=== PATIENT | female | born 1965 | race American Indian/Alaskan Native ===

== ENCOUNTER 2017-10-12 19:50 | Inpatient (IN) | payer OTHER ==
--- NOTE | 2017-10-12 20:23 | Cat Scan Report ---
FINAL REPORT PROCEDURE: CT HEAD/BRAIN WO CON TECHNIQUE: Computerized tomography of the head was performed without contrast material. HISTORY: Stroke symptoms COMPARISON: No prior studies are available for comparison. FINDINGS: Skull and scalp: Normal. Paranasal sinuses: Mucosal thickening is noted involving left ethmoid sinuses. Ventricles and subarachnoid spaces: Normal. Cerebrum: No evidence of hemorrhage, acute infarction or mass . Cerebellum and brainstem: No evidence of hemorrhage, acute infarction or mass. Vasculature: Normal. Comments: None. IMPRESSION: No acute intracranial abnormality Left ethmoid chronic sinusitis
[2017-10-12 20:26] LABS: INR 0.8 (0.87-1.13)
[2017-10-12 20:27] LABS: Alanine Aminotransferase 19 units/L (7-56); Albumin 4.1 g/dL (3.9-5); BUN/Creatinine Ratio 20; Blood Urea Nitrogen 16 mg/dL (7-17); Calcium 8.5 mg/dL (8.4-10.2); Partial Thromboplastin Time 27.1 Sec. (24.2-36.6); Thrombin Time 14.8 Sec. (15.1-19.6)
[2017-10-12 20:30] LABS: Basophils # (Auto) 0.1 K/mm3 (0.0-0.1); Eosinophils # (Auto) 0.3 K/mm3 (0.0-0.4); Eosinophils % (Auto) 2.2 % (0.0-4.3); Hematocrit 37.3 % (30.3-42.9); Hemoglobin 12.5 gm/dl (10.1-14.3); Lymphocytes % (Auto) 34.7 % (13.4-35.0); Mean Corpuscular HGB Conc 34 % (30-34); Mean Corpuscular Hemoglobin 32 pg (28-32); Mean Corpuscular Volume 94 fl (79-97); Monocytes # (Auto) 0.9 K/mm3 (0.0-0.8); Monocytes % (Auto) 7.4 % (0.0-7.3); Platelet Count 265 K/mm3 (140-440); Red Blood Count 3.96 M/mm3 (3.65-5.03); Red Cell Distribution Width 13.8 % (13.2-15.2)
--- NOTE | 2017-10-12 20:34 | XRay Report ---
FINAL REPORT PROCEDURE: XR CHEST 1V AP TECHNIQUE: Chest radiograph anteroposterior view. CPT 57821 HISTORY: cva COMPARISON: No prior studies are available for comparison. FINDINGS: Heart: Normal. Mediastinum/Vessels: Normal. Lungs/Pleural space: Normal. Bony thorax: No acute osseous abnormality. Life support devices: None. IMPRESSION: No acute cardiopulmonary abnormality.
[2017-10-12 20:47] LABS: Creatine Kinase MB 1.5 ng/mL (0.0-4.0)
[2017-10-12] MEDS ORDERED: NORMODYNE IV ONE ×3 (20:51→21:07)
[2017-10-12] MEDS ORDERED: NACL 0.9% IV ONE ×3 (20:57→21:02)
[2017-10-12] MEDS ORDERED: ACTIVASE IV ONE ×2 (21:02)
--- NOTE | 2017-10-12 22:31 | Emergency Department Report ---
ED Neuro Deficit HPI - General Chief Complaint: Neuro Symptoms/Deficit Stated Complaint: POSSIBLE STROKE Time Seen by Provider: 10/12/17 19:59 Source: family, EMS Mode of arrival: Ambulatory Limitations: Language Barrier, Altered Mental Status, Physical Limitation - History of Present Illness Initial Comments: Ms. Sanches is a 62-year-old female with history of TIA, hypertension and peripheral vascular disease. She is taking clopidogrel. She fell suddenly at work approximately 1910 according to daughter. Her coworkers immediately called the daughter. Patient is currently nonverbal. Patient was nonverbal. She was not moving her right side. No witnessed seizure activity. Patient is unable to give history due to aphasia. Daughter was able to give history. EMS gave history. -: Sudden Last Observed Normal: 19:10 Location: speech, right arm, right leg Presenting Symptoms: Present: Weak/Paralyzed One Side, Unable to Speak Clearly, Altered Mental Status History of same: No (history of TIA) Place: work Severity: severe Quality: weak Improves With: none Worsens With: none On Anticoagulants: No (clopidogrel ) Context: sudden onset Associated Symptoms: confusion Treatments Prior to Arrival: none - Related Data Home Medications: Home Medications Medication Instructions Recorded Confirmed Last Taken Atenolol [Tenormin] 25 mg PO DAILY 05/09/13 03/16/14 05/09/13 03:30 Lisinopril/Hydrochlorothiazide 1 tab PO DAILY 03/16/14 03/16/14 Unknown [Zestoretic 20-25 mg] tiZANidine [Zanaflex] 4 mg PO BID PRN 03/16/14 03/16/14 Unknown Previous Rx's Medication Instructions Recorded Last Taken Type Acetaminophen/Codeine [Tylenol 1 tab PO Q8HR PRN #12 tablet 12/10/15 Unknown Rx /Codeine # 3 tab] Allergies/Adverse Reactions: Allergies Allergy/AdvReac Type Severity Reaction Status Date / Time clarithromycin [From Biaxin] Allergy Swelling Verified 05/14/13 10:06 prochlorperazine edisylate Allergy Itching Verified 05/14/13 10:06 [From Compazine] prochlorperazine maleate Allergy Itching Verified 05/14/13 10:06 [From Compazine] ED Review of Systems ROS: Stated complaint: POSSIBLE STROKE Other details as noted in HPI Comment: Unobtainable due to pts medical conditions ED Past Medical Hx - Past Medical History Previous Medical History?: Yes Hx Hypertension: Yes Hx of Cancer: No Hx Arthritis: No Hx Headaches / Migraines: Yes Hx Asthma: No - Surgical History Hx Appendectomy: Yes Additional Surgical History: tubligation - Social History Smoking Status: Current Every Day Smoker Substance Use Type: Alcohol - Medications Home Medications: Home Medications Medication Instructions Recorded Confirmed Last Taken Type Atenolol [Tenormin] 25 mg PO DAILY 05/09/13 03/16/14 05/09/13 03:30 History Lisinopril/Hydrochlorothiazide 1 tab PO DAILY 03/16/14 03/16/14 Unknown History [Zestoretic 20-25 mg] tiZANidine [Zanaflex] 4 mg PO BID PRN 03/16/14 03/16/14 Unknown History Acetaminophen/Codeine [Tylenol 1 tab PO Q8HR PRN #12 tablet 12/10/15 Unknown Rx /Codeine # 3 tab] ED Neuro Physical Exam - General Limitations: Altered Mental Status, Physical Limitation General appearance: alert, other (nonverbal will track with eyes moves her mouth as if she is attempting to speak head deviated to the left) Suspected Stroke: Yes - Head Head exam: Present: atraumatic, normocephalic - Eye Eye exam: Present: normal appearance, PERRL, EOMI Pupils: Present: normal accommodation - ENT ENT exam: Present: normal orophraynx, mucous membranes moist - Neck Neck exam: Present: normal inspection, full ROM. Absent: tenderness, meningismus - Respiratory Respiratory exam: Present: normal lung sounds bilaterally. Absent: respiratory distress, wheezes, rales, rhonchi - Cardiovascular Cardiovascular Exam: Present: regular rate, normal rhythm, normal heart sounds. Absent: irregular rhythm, systolic murmur, diastolic murmur - GI/Abdominal GI/Abdominal exam: Present: soft. Absent: distended, tenderness, guarding, rebound - Extremities Exam Extremities exam: Present: normal inspection - Neurological Exam Neurological exam: Present: alert, other (nonverbal will move her mouth complete right-sided neglect dense paralysis 0 out of 10 in strength right upper extremity right lower extremity intact strength on the left side is 5 out of 5 left upper arm 4/ 5 left leg) - NIHSS Assessment Interval: Baseline 1a. Level of Consciousness: alert 1b. LOC Questions: answers no questions correctly 1c. LOC Commands: performs no tasks correctly 2. Best Gaze: normal 3. Visual: no visual loss 4. Facial Palsy: minor paralysis 5b. Motor Arm Right: no movement 5a. Motor Arm Left: no drift 6a. Motor Leg Left: drift 6b. Motor Leg Right: no movement 7. Limb Ataxia: present 2 limbs 8. Sensory: severe/total sensory loss 9. Best Language: mute/global aphasia 10. Dysarthria: severe dysarthria 11. Extinction/Inattention: profound inattention ED Course Vital Signs 10/12/17 10/12/17 10/12/17 20:00 20:05 20:10 Temperature 98.4 F Pulse Rate 76 Respiratory 16 Rate Blood Pressure 196/99 Blood Pressure 196/99 189/96 [Right] O2 Sat by Pulse 100 Oximetry 10/12/17 10/12/17 10/12/17 20:15 20:25 20:40 Temperature Pulse Rate Respiratory Rate Blood Pressure Blood Pressure 175/103 188/98 205/112 [Right] O2 Sat by Pulse Oximetry 10/12/17 10/12/17 10/12/17 20:50 21:00 21:10 Temperature Pulse Rate Respiratory Rate Blood Pressure Blood Pressure 198/110 207/109 200/102 [Right] O2 Sat by Pulse Oximetry 10/12/17 10/12/17 10/12/17 21:20 21:48 21:51 Temperature Pulse Rate 75 Respiratory Rate Blood Pressure 184/101 178/96 Blood Pressure 184/105 [Right] O2 Sat by Pulse Oximetry - Reevaluation(s) Reevaluation #1: 10/12/17 22:33 After TPA infusion, patient is able to move right hand and right foot. Attempts to communicate more - Lab Data Result diagrams: 10/12/17 20:26 10/12/17 20:13 Lab Results 10/12/17 10/12/17 10/12/17 Range/Units 20:03 20:13 20:13 WBC (4.5-11.0) K/mm3 RBC (3.65-5.03) M/mm3 Hgb (10.1-14.3) gm/dl Hct (30.3-42.9) % MCV (79-97) fl MCH (28-32) pg MCHC (30-34) % RDW (13.2-15.2) % Plt Count (140-440) K/mm3 Lymph % (Auto) (13.4-35.0) % [place] % (Auto) (0.0-7.3) % Eos % (Auto) (0.0-4.3) % Baso % (Auto) (0.0-1.8) % Lymph # (1.2-5.4) K/mm3 [place] # (0.0-0.8) K/mm3 Eos # (0.0-0.4) K/mm3 Baso # (0.0-0.1) K/mm3 Seg Neutrophils % (40.0-70.0) % Seg Neutrophils # (1.8-7.7) K/mm3 PT 11.4 L (12.2-14.9) Sec. INR 0.80 L (0.87-1.13) APTT 27.1 (24.2-36.6) Sec. Thrombin Time 14.8 L (15.1-19.6) Sec. Sodium 135 L (137-145) mmol/L Potassium 5.6 H (3.6-5.0) mmol/L Chloride 95.1 L (98-107) mmol/L Carbon Dioxide 20 L (22-30) mmol/L Anion Gap 26 mmol/L BUN 16 (7-17) mg/dL Creatinine 0.8 (0.7-1.2) mg/dL Estimated GFR > 60 ml/min BUN/Creatinine Ratio 20 % Glucose 104 H (65-100) mg/dL POC Glucose 102 (70-105) Calcium 8.5 (8.4-10.2) mg/dL Total Bilirubin 0.40 (0.1-1.2) mg/dL AST 42 H (5-40) units/L ALT 19 (7-56) units/L Alkaline Phosphatase 133 H (35-129) units/L Total Creatine Kinase (30-135) units/L CK-MB (CK-2) (0.0-4.0) ng/mL CK-MB (CK-2) Rel Index (0-4) Troponin T (0.00-0.029) ng/mL Total Protein 7.1 (6.3-8.2) g/dL Albumin 4.1 (3.9-5) g/dL Albumin/Globulin Ratio 1.4 % Plasma/Serum Alcohol (0-0.07) % Blood Type Antibody Screen 10/12/17 10/12/17 10/12/17 Range/Units 20:26 20:26 20:26 WBC 11.5 H (4.5-11.0) K/mm3 RBC 3.96 (3.65-5.03) M/mm3 Hgb 12.5 (10.1-14.3) gm/dl Hct 37.3 (30.3-42.9) % MCV 94 (79-97) fl MCH 32 (28-32) pg MCHC 34 (30-34) % RDW 13.8 (13.2-15.2) % Plt Count 265 (140-440) K/mm3 Lymph % (Auto) 34.7 (13.4-35.0) % [place] % (Auto) 7.4 H (0.0-7.3) % Eos % (Auto) 2.2 (0.0-4.3) % Baso % (Auto) 1.0 (0.0-1.8) % Lymph # 4.0 (1.2-5.4) K/mm3 [place] # 0.9 H (0.0-0.8) K/mm3 Eos # 0.3 (0.0-0.4) K/mm3 Baso # 0.1 (0.0-0.1) K/mm3 Seg Neutrophils % 54.7 (40.0-70.0) % Seg Neutrophils # 6.3 (1.8-7.7) K/mm3 PT (12.2-14.9) Sec. INR (0.87-1.13) APTT (24.2-36.6) Sec. Thrombin Time (15.1-19.6) Sec. Sodium (137-145) mmol/L Potassium (3.6-5.0) mmol/L Chloride (98-107) mmol/L Carbon Dioxide (22-30) mmol/L Anion Gap mmol/L BUN (7-17) mg/dL Creatinine (0.7-1.2) mg/dL Estimated GFR ml/min BUN/Creatinine Ratio % Glucose (65-100) mg/dL POC Glucose (70-105) Calcium (8.4-10.2) mg/dL Total Bilirubin (0.1-1.2) mg/dL AST (5-40) units/L ALT (7-56) units/L Alkaline Phosphatase (35-129) units/L Total Creatine Kinase 140 H (30-135) units/L CK-MB (CK-2) 1.5 (0.0-4.0) ng/mL CK-MB (CK-2) Rel Index 1.0 (0-4) Troponin T < 0.010 (0.00-0.029) ng/mL Total Protein (6.3-8.2) g/dL Albumin (3.9-5) g/dL Albumin/Globulin Ratio % Plasma/Serum Alcohol < 0.01 (0-0.07) % Blood Type Antibody Screen 10/12/17 Range/Units 20:26 WBC (4.5-11.0) K/mm3 RBC (3.65-5.03) M/mm3 Hgb (10.1-14.3) gm/dl Hct (30.3-42.9) % MCV (79-97) fl MCH (28-32) pg MCHC (30-34) % RDW (13.2-15.2) % Plt Count (140-440) K/mm3 Lymph % (Auto) (13.4-35.0) % [place] % (Auto) (0.0-7.3) % Eos % (Auto) (0.0-4.3) % Baso % (Auto) (0.0-1.8) % Lymph # (1.2-5.4) K/mm3 [place] # (0.0-0.8) K/mm3 Eos # (0.0-0.4) K/mm3 Baso # (0.0-0.1) K/mm3 Seg Neutrophils % (40.0-70.0) % Seg Neutrophils # (1.8-7.7) K/mm3 PT (12.2-14.9) Sec. INR (0.87-1.13) APTT (24.2-36.6) Sec. Thrombin Time (15.1-19.6) Sec. Sodium (137-145) mmol/L Potassium (3.6-5.0) mmol/L Chloride (98-107) mmol/L Carbon Dioxide (22-30) mmol/L Anion Gap mmol/L BUN (7-17) mg/dL Creatinine (0.7-1.2) mg/dL Estimated GFR ml/min BUN/Creatinine Ratio % Glucose (65-100) mg/dL POC Glucose (70-105) Calcium (8.4-10.2) mg/dL Total Bilirubin (0.1-1.2) mg/dL AST (5-40) units/L ALT (7-56) units/L Alkaline Phosphatase (35-129) units/L Total Creatine Kinase (30-135) units/L CK-MB (CK-2) (0.0-4.0) ng/mL CK-MB (CK-2) Rel Index (0-4) Troponin T (0.00-0.029) ng/mL Total Protein (6.3-8.2) g/dL Albumin (3.9-5) g/dL Albumin/Globulin Ratio % Plasma/Serum Alcohol (0-0.07) % Blood Type O POSITIVE Antibody Screen Negative 10/12/17 22:33 EKG obtained 1955 Rate 95 beats a minute normal sinus rhythm normal axis normal intervals no ST-T signs of ischemia or infarct - Medical Decision Making Medications at the bedside immediately. Concern for severe CVA. Patient had dense right-sided hemiparesis, neglect, aphasia. I consulted neurologist Dr. Treviño who evaluated patient. She recommended TPA. I consulted pharmacy to expedite TPA infusion. Patient required several doses of Labetalol prior to infusion. After tpa infusion, she is able to move right hand and right foot. NIHSS [address] Barron Cifuentes physician approved admission to our hospital. Our hospitalist Dr. Stern will admit patient. Critical Care Time: Yes Critical care time in (mins) excluding proc time.: 45 Critical care attestation.: If time is entered above; I have spent that time in minutes in the direct care of this critically ill patient, excluding procedure time. ED Disposition Clinical Impression: Acute CVA (cerebrovascular accident) Disposition: OP ADMIT IP TO THIS HOSP Is pt being admited?: Yes Does the pt Need Aspirin: No Condition: Stable Time of Disposition: 23:24
[2017-10-12 23:29] LABS: Amphetamine Screen,Urine PRESUMPTIVE NEGATIVE; Benzodiazepines Screen,Urine PRESUMPTIVE NEGATIVE; Cannabinoid Screen,Urine PRESUMPTIVE NEGATIVE; Cocaine Screen,Urine PRESUMPTIVE NEGATIVE; Methadone Screen,Urine PRESUMPTIVE NEGATIVE; Opiate Screen,Urine PRESUMPTIVE NEGATIVE
[2017-10-12 23:30] LABS: Bilirubin,Urine NEG (Negative); Blood,Urine SM (Negative); Color,Urine Yellow (Yellow); Protein,Urine <15 mg/dL mg/dL (Negative); Urobilinogen,Urine < 2.0 mg/dL (<2.0); WBC,Urine < 1.0 /HPF (0.0-6.0)
[2017-10-12] MEDS ORDERED: REGLAN PO PRN (23:56)
[2017-10-12] MEDS ORDERED: APRESOLINE IV PRN (23:56)
[2017-10-12] MEDS ORDERED: MILK OF MAGNESIA PO PRN (23:56)
[2017-10-12] MEDS ORDERED: TYLENOL PO PRN (23:56)
[2017-10-12] MEDS ORDERED: NORCO 5/325 PO PRN (23:56)
[2017-10-12] MEDS ORDERED: DULCOLAX PR PRN (23:56)
[2017-10-12] MEDS ORDERED: SODIUM CHLORIDE FLUSH SYRINGE 10 ML IV PRN (23:56)
[2017-10-13] MEDS ORDERED: HumuLIN R IV ONE (00:07)
[2017-10-13] MEDS ORDERED: D50W (25GM) Syringe IV ONE ×2 (00:08→00:37)
--- NOTE | 2017-10-13 00:22 | History and Physical Report ---
History of Present Illness Date of examination: 10/12/17 Date of admission: 10/12/17 23:56 Chief complaint: Syncope with right-sided weakness History of present illness: Patient is a 52-year-old -Serbian female with medical history significant for poorly controlled hypertension, TIA and peripheral vascular disease on Plavix, who was brought to the ED via EMS on account of syncope with right-sided weakness. Of note, history was obtained from both the patient and her daughter who was at the bedside. It was reported that the patient passed out while at work and was subsequently noted to have right-sided weakness with inability to verbalize. She was brought to the ED about 45 minutes after the incident and he received TPA in the ED. On further questioning the patient, she admitted to headaches, dizziness, chest pain, and sore throat. She denies nausea, vomiting, shortness of breath, diaphoresis, palpitation, fever or chills , cough, leg swelling, orthopnea or PND. No reported history of seizure activity. Past History Past Medical History: hypertension, hyperlipidemia, PVD, other (TIA, chronic back pain, atypical migraine) Past Surgical History: appendectomy, Other (arterial stent placement, tubal ligation) Social history: smoking (tobacco abuse of more than 20 years. Admits to occasional alcohol use but denies illicit drug use) Family history: other (reviewed and noncontributory) Medications and Allergies Allergies Allergy/AdvReac Type Severity Reaction Status Date / Time clarithromycin [From Biaxin] Allergy Swelling Verified 05/14/13 10:06 prochlorperazine edisylate Allergy Itching Verified 05/14/13 10:06 [From Compazine] prochlorperazine maleate Allergy Itching Verified 05/14/13 10:06 [From Compazine] Home Medications Medication Instructions Recorded Confirmed Last Taken Type Atenolol [Tenormin] 25 mg PO DAILY 05/09/13 03/16/14 05/09/13 03:30 History Lisinopril/Hydrochlorothiazide 1 tab PO DAILY 03/16/14 03/16/14 Unknown History [Zestoretic 20-25 mg] tiZANidine [Zanaflex] 4 mg PO BID PRN 03/16/14 03/16/14 Unknown History Acetaminophen/Codeine [Tylenol 1 tab PO Q8HR PRN #12 tablet 12/10/15 Unknown Rx /Codeine # 3 tab] Active Meds: Active Medications Acetaminophen (Tylenol) 650 mg PO Q4H PRN PRN Reason: Pain, Mild (1-3) Acetaminophen/Hydrocodone Bitart ([place] 5/325) 2 each PO Q6H PRN PRN Reason: Pain, Moderate (4-6) Bisacodyl (Dulcolax) 10 mg NM QDAY PRN PRN Reason: Constipation Dextrose (D50w (25gm) Syringe) 50 ml IV ONCE ONE Stop: 10/13/17 00:09 Docusate Sodium (Colace) 100 mg PO BID SANTOS Hydralazine HCl (Apresoline) 10 mg IV Q6H PRN PRN Reason: Keep SBP between 160-185 mm Hg Sodium Chloride (Nacl 0.9% 1000 Ml) 1,000 mls @ 100 mls/hr IV DIRECT SANTOS Insulin Human Regular (Humulin R) 10 units IV ONCE ONE Stop: 10/13/17 00:08 Magnesium Hydroxide (Milk Of Magnesia) 30 ml PO Q4H PRN PRN Reason: Constipation Metoclopramide HCl (Reglan) 10 mg PO Q6H PRN PRN Reason: Nausea And Vomiting Ondansetron HCl (Zofran) 4 mg IV Q8H PRN PRN Reason: N/V unrelieved by Reglan Sodium Chloride (Sodium Chloride Flush Syringe 10 Ml) 10 ml INJ PRN PRN PRN Reason: LINE FLUSH Review of Systems All systems: negative (except as documented in the HPI, all other systems were reviewed and negative) Exam - Constitutional Vitals: Temp Pulse Resp BP Pulse Ox 98.4 F 75 16 178/96 100 10/12/17 20:05 10/12/17 21:51 10/12/17 20:05 10/12/17 21:51 10/12/17 20:05 General appearance: Present: no acute distress, well-nourished - EENT Eyes: Present: PERRL, EOM intact ENT: hearing intact, clear oral mucosa - Neck Neck: Present: supple, normal ROM - Respiratory Respiratory effort: normal Respiratory: bilateral: CTA - Cardiovascular Rhythm: regular Heart Sounds: Present: S1 & S2. Absent: rub, click - Extremities Extremities: No edema - Abdominal General gastrointestinal: Present: soft, non-tender, non-distended, normal bowel sounds - Integumentary Integumentary: Present: clear, warm, dry - Musculoskeletal Musculoskeletal: right sided weakness - Psychiatric Psychiatric: appropriate mood/affect, intact judgment & insight - Neurologic Neurologic: focal deficits (RT sided weakness) Results - Labs CBC & Chem 7: 10/12/17 20:26 10/12/17 20:13 Labs: Laboratory Last Values WBC 11.5 K/mm3 (4.5-11.0) H 10/12/17 20: RBC 3.96 M/mm3 (3.65-5.03) 10/12/17 20: Hgb 12.5 gm/dl (10.1-14.3) 10/12/17 20: Hct 37.3 % (30.3-42.9) 10/12/17 20: MCV 94 fl (79-97) 10/12/17 20: MCH 32 pg (28-32) 10/12/17 20: MCHC 34 % (30-34) 10/12/17 20: RDW 13.8 % (13.2-15.2) 10/12/17 20: Plt Count 265 K/mm3 (140-440) 10/12/17 20: Lymph % (Auto) 34.7 % (13.4-35.0) 10/12/17 20: [place] % (Auto) 7.4 % (0.0-7.3) H 10/12/17 20: Eos % (Auto) 2.2 % (0.0-4.3) 10/12/17 20: Baso % (Auto) 1.0 % (0.0-1.8) 10/12/17 20: Lymph # 4.0 K/mm3 (1.2-5.4) 10/12/17 20: [place] # 0.9 K/mm3 (0.0-0.8) H 10/12/17 20: Eos # 0.3 K/mm3 (0.0-0.4) 10/12/17 20: Baso # 0.1 K/mm3 (0.0-0.1) 10/12/17 20: Seg Neutrophils % 54.7 % (40.0-70.0) 10/12/17 20:26 Seg Neutrophils # 6.3 K/mm3 (1.8-7.7) 10/12/17 20:26 PT 11.4 Sec. (12.2-14.9) L 10/12/17 20:13 INR 0.80 (0.87-1.13) L 10/12/17 20:13 APTT 27.1 Sec. (24.2-36.6) 10/12/17 20:13 Thrombin Time 14.8 Sec. (15.1-19.6) L 10/12/17 20:13 Sodium 135 mmol/L (137-145) L 10/12/17 20:13 Potassium 5.6 mmol/L (3.6-5.0) H 10/12/17 20:13 Chloride 95.1 mmol/L (98-107) L 10/12/17 20:13 Carbon Dioxide 20 mmol/L (22-30) L 10/12/17 20:13 Anion Gap 26 mmol/L 10/12/17 20:13 BUN 16 mg/dL (7-17) 10/12/17 20:13 Creatinine 0.8 mg/dL (0.7-1.2) 10/12/17 20:13 Estimated GFR > 60 ml/min 10/12/17 20:13 BUN/Creatinine Ratio 20 % 10/12/17 20:13 Glucose 104 mg/dL (65-100) H 10/12/17 20:13 POC Glucose 102 (70-105) 10/12/17 20:03 Calcium 8.5 mg/dL (8.4-10.2) 10/12/17 20:13 Total Bilirubin 0.40 mg/dL (0.1-1.2) 10/12/17 20:13 AST 42 units/L (5-40) H 10/12/17 20:13 ALT 19 units/L (7-56) 10/12/17 20:13 Alkaline Phosphatase 133 units/L (35-129) H 10/12/17 20:13 Total Creatine Kinase 140 units/L (30-135) H 10/12/17 20:26 CK-MB (CK-2) 1.5 ng/mL (0.0-4.0) 10/12/17 20:26 CK-MB (CK-2) Rel Index 1.0 (0-4) 10/12/17 20: Troponin T < 0.010 ng/mL (0.00-0.029) 10/12/17 20: Total Protein 7.1 g/dL (6.3-8.2) 10/12/17 20: Albumin 4.1 g/dL (3.9-5) 10/12/17 20: Albumin/Globulin Ratio 1.4 % 10/12/17 20: Urine Color Yellow (Yellow) 10/12/17 20: Urine Turbidity Clear (Clear) 10/12/17 20: Urine pH 7.0 (5.0-7.0) 10/12/17 20: Ur Specific [place] 1.014 (1.003-1.030) 10/12/17 20: Urine Protein <15 mg/dl mg/dL (Negative) 10/12/17 20:06 Urine Glucose (UA) Neg mg/dL (Negative) 10/12/17 20: Urine Ketones Neg mg/dL (Negative) 10/12/17 20: Urine Blood Sm (Negative) 10/12/17 20: Urine Nitrite Neg (Negative) 10/12/17 20:06 Urine Bilirubin Neg (Negative) 10/12/17 20: Urine Urobilinogen < 2.0 mg/dL (<2.0) 10/12/17 20:06 Ur Leukocyte Esterase Neg (Negative) 10/12/17 20:06 Urine WBC (Auto) < 1.0 /HPF (0.0-6.0) 10/12/17 20:06 Urine RBC (Auto) 5.0 /HPF (0.0-6.0) 10/12/17 20:06 U Epithel Cells (Auto) < 1.0 /HPF (0-13.0) 10/12/17 20:06 Urine Opiates Screen Presumptive negative 10/12/17 20:06 Urine Methadone Screen Presumptive negative 10/12/17 20:06 Ur Barbiturates Screen Presumptive negative 10/12/17 20:06 Ur Phencyclidine Scrn Presumptive negative 10/12/17 20:06 Ur Amphetamines Screen Presumptive negative 10/12/17 20:06 U Benzodiazepines Scrn Presumptive negative 10/12/17 20:06 Urine Cocaine Screen Presumptive negative 10/12/17 20:06 U Marijuana (THC) Screen Presumptive negative 10/12/17 20:06 Drugs of Abuse Note Disclamer 10/12/17 20:06 Plasma/Serum Alcohol < 0.01 % (0-0.07) 10/12/17 20:26 Blood Type O POSITIVE 10/12/17 20:26 Antibody Screen Negative 10/12/17 20:26 - Imaging and Cardiology Chest x-ray: report reviewed CT Scan - head: report reviewed Assessment and Plan Assessment and plan: Acute stroke with right hemiparesis -status post TPA -Will admit patient to the ICU and place her on a stroke protocol -CT head is neg -We will do further investigative testing with MRI brain, MRA head and neck, echocardiogram and carotid Doppler -Neurology consulted Hypertensive emergency -We will place patient on when necessary antihypertensive per the stroke protocol Hyperkalemia -Will treat with insulin and dextrose. -Will monitor potassium level Transaminitis -We will continue to monitor levels Leukocytosis, probably reactive -Ua is neg -Will monitor WBC level Hyperlipidemia -She will be placed on a statin History of PVD on Plavix -All antiplatelets will be held for 24 hours due to the TPA patient received Tobacco abuse -Patient was counseled on cessation History of migraines -Will be placed on when necessary analgesics. Disposition: Patient is likely to need inpatient rehabilitation facility placement. I spent 45 minutes providing critical care to this seriously ill patient, who requires frequent reassessment of her neurological status.
[2017-10-13] MEDS ORDERED: HumuLIN R ONE (00:39)
[2017-10-13] MEDS: MORPHINE IV PRN ×2 (02:33→06:53)
[2017-10-13] MEDS: NACL 0.9% 1000 ML 1,000 ML IV SCH ×2 (02:35→18:43)
[2017-10-13 05:13] LABS: Chol/HDL Ratio 2.9 %
--- NOTE | 2017-10-13 06:31 | Cat Scan Report ---
FINAL REPORT PROCEDURE: CT HEAD/BRAIN WO CON TECHNIQUE: Computerized tomography of the head was performed without contrast material. HISTORY: S/P TPA severe headache COMPARISON: No prior studies are available for comparison. FINDINGS: Skull and scalp: Normal. Paranasal sinuses: Normal. Ventricles and subarachnoid spaces: Normal. Cerebrum: No evidence of hemorrhage, acute infarction or mass . Cerebellum and brainstem: No evidence of hemorrhage, acute infarction or mass. Vasculature: Normal. Comments: None. IMPRESSION: Normal Examination
[2017-10-13] MEDS: COLACE PO SCH ×2 (09:01→21:05)
--- NOTE | 2017-10-13 10:23 | Consultation ---
History of Present Illness Consult date: 10/13/17 Requesting physician: CARMEN VACA Reason for Consult: Acute CVA. Chief complaint: Right side weakness and slurry speech. History of present illness: 52-year-old right handed -Northern [place] female with a medical history of significant for poorly controlled hypertension, TIA and peripheral vascular disease on Plavix, who was brought to the ED via EMS on account of syncope with right-sided weakness. She was at work, then suddenly passed out and was subsequently noted to have right-sided weakness with inability to verbalize. She was brought to the ED about 45 minutes after the incident and he received TPA in the ED. On further questioning the patient, she admitted to headaches, dizziness, chest pain, and sore throat. She denied history of seizure activity. Right now her right side weakness improved, but felt throat sore and hoarse speech. Past History Past Medical History: hypertension, hyperlipidemia, PVD, other (TIA, chronic back pain, atypical migraine) Past Surgical History: appendectomy, Other (arterial stent placement, tubal ligation) Social history: smoking (tobacco abuse of more than 20 years. Admits to occasional alcohol use but denies illicit drug use) Family history: other (CVA, heart disease, DM and HTN.) Medications and Allergies Allergies Allergy/AdvReac Type Severity Reaction Status Date / Time clarithromycin [From Biaxin] Allergy Swelling Verified 05/14/13 10:06 prochlorperazine edisylate Allergy Itching Verified 05/14/13 10:06 [From Compazine] prochlorperazine maleate Allergy Itching Verified 05/14/13 10:06 [From Compazine] Home Medications Medication Instructions Recorded Confirmed Last Taken Type Atenolol [Tenormin] 25 mg PO DAILY 05/09/13 03/16/14 05/09/13 03:30 History Lisinopril/Hydrochlorothiazide 1 tab PO DAILY 03/16/14 03/16/14 Unknown History [Zestoretic 20-25 mg] tiZANidine [Zanaflex] 4 mg PO BID PRN 03/16/14 03/16/14 Unknown History Acetaminophen/Codeine [Tylenol 1 tab PO Q8HR PRN #12 tablet 12/10/15 Unknown Rx /Codeine # 3 tab] Active Meds: Active Medications Acetaminophen (Tylenol) 650 mg PO Q4H PRN PRN Reason: Pain, Mild (1-3) Acetaminophen/Hydrocodone Bitart ([place] 5/325) 2 each PO Q6H PRN PRN Reason: Pain, Moderate (4-6) Atorvastatin Calcium (Lipitor) 40 mg PO QHS SANTOS Bisacodyl (Dulcolax) 10 mg [place] QDAY PRN PRN Reason: Constipation Docusate Sodium (Colace) 100 mg PO BID [facility] Last Admin: 10/13/17 09:01 Dose: Not Given Hydralazine HCl (Apresoline) 10 mg IV Q6H PRN PRN Reason: Keep SBP between 160-185 mm Hg Sodium Chloride (Nacl 0.9% 1000 Ml) 1,000 mls @ 100 mls/hr IV DIRECT [facility] Last Admin: 10/13/17 02:35 Dose: 100 mls/hr Magnesium Hydroxide (Milk Of Magnesia) 30 ml PO Q4H PRN PRN Reason: Constipation Metoclopramide HCl (Reglan) 10 mg PO Q6H PRN PRN Reason: Nausea And Vomiting Morphine Sulfate (Morphine) 2 mg IV Q4H PRN PRN Reason: Pain, Moderate (4-6) Last Admin: 10/13/17 06:53 Dose: 2 mg Ondansetron HCl (Zofran) 4 mg IV Q8H PRN PRN Reason: N/V unrelieved by Reglan Sodium Chloride (Sodium Chloride Flush Syringe 10 Ml) 10 ml IV PRN PRN PRN Reason: LINE FLUSH Review of Systems Constitutional: fever, chills Neurological: weakness, change in speech (She has throat sore. All other 10 points of systems are reviewed and negative.) Physical Examination - Vital Signs Vital Signs: Vital Signs BP 196/99 10/12/17 20:00 - Constitutional General appearance: comfortable - EENT EENT: Present: PERRL, hearing intact, vision intact - Respiratory Respiratory: Present: lungs clear, normal breath sounds - Cardiovascular Cardiovascular: Present: regular rate, no murmurs Extremities: Present: no peripheral edema bilatateraly, no clubbing, cyanosis - Gastrointestinal Gastrointestinal: Present: soft, non-tender - Integumentary Integumentary: Present: normal - Neurologic Detailed motor examination: other (Right upper 3/5, right lower 2/5, left upper 5/5, left lower 4/5.) Detailed sensory examination: intact Reflex and gait examination: other (Gait deferred.) Reflexes: 1+: ankle, bicep, knee, tricep - Psychiatric Psychiatric: Present: mood/affect appropriate - Assessment Assessment Interval: Baseline - Level of Consciousness 1a. Level of Consciousness: alert - LOC Questions 1b. LOC Questions: answers no questions correctly - LOC Command 1c. LOC Commands: performs no tasks correctly - Best Gaze 2. Best Gaze: normal - Visual 3. Visual: no visual loss - Facial Palsy 4. Facial Palsy: minor paralysis - Motor Arm 5b. Motor Arm Right: drift - Motor Leg 6a. Motor Leg Left: some gravity effort - Limb Ataxia 7. Limb Ataxia: present 2 limbs - Sensory 8. Sensory: severe/total sensory loss - Dysarthria 10. Dysarthria: mild/moderate dysarthria - Extinction and Inattention 11. Extinction/Inattention: profound inattention Results - Laboratory Findings CBC and BMP: 10/12/17 20:26 10/12/17 20:13 Abnormal Lab Findings: Abnormal Labs 10/12/17 10/12/17 10/12/17 20:13 20:13 20:26 WBC 11.5 H [place] % (Auto) 7.4 H [place] # 0.9 H PT 11.4 L INR 0.80 L Thrombin Time 14.8 L Sodium 135 L Potassium 5.6 H Chloride 95.1 L Carbon Dioxide 20 L Glucose 104 H AST 42 H Alkaline Phosphatase 133 H Total Creatine Kinase HDL Cholesterol 10/12/17 10/13/17 20:26 03:50 WBC [place] % (Auto) [place] # PT INR Thrombin Time Sodium Potassium Chloride Carbon Dioxide Glucose AST Alkaline Phosphatase Total Creatine Kinase 140 H HDL Cholesterol 33 L Assessment and Plan 1. Acute onset, dizziness, syncope, headache, right side weakness, slurry speech. Admitted for acute CVA, S/P IV TPA. NIHSS 4. Follow post TPA protocol. If repeat head CT no bleeding, no hemorrhage, resume her Plavix. 2. OT/PT, rehab and speech pathology. DVT prophylaxis. 3. Brain MRI without contrast. If acute CVA, head MRA. Carotid Doppler and echo. Lipid profile and A1c. 4. H/O atypical migraine headache. Complex migraine headache as differential. PRN headache medicine. 5. HTN. Permissive if less 180/105 until brain MRI clear. 6. Quit smoking. 7. Plan discussed with her. 8. If D/C, F/U with neurology in 4-6 weeks.
--- NOTE | 2017-10-13 11:59 | Consultation ---
History of Present Illness - Reason for Consult Consult date: 10/13/17 CVA post TPA Requesting physician: AMAURY WILSON - History of Present Illness 52 y/o female admitted to ICU post TPA for left sided CVA. Currently suffering from Migraine. Family at bedside. Still has residual right sided weakness but has improved from flaccid state of last night based on description in chart. Past History Past Medical History: hypertension, hyperlipidemia, PVD, other (TIA, chronic back pain, atypical migraine) Past Surgical History: appendectomy, Other (arterial stent placement, tubal ligation) Social history: smoking (tobacco abuse of more than 20 years. Admits to occasional alcohol use but denies illicit drug use) Family history: other (CVA, heart disease, DM and HTN.) Medications and Allergies Allergies Allergy/AdvReac Type Severity Reaction Status Date / Time clarithromycin [From Biaxin] Allergy Swelling Verified 05/14/13 10:06 prochlorperazine edisylate Allergy Itching Verified 05/14/13 10:06 [From Compazine] prochlorperazine maleate Allergy Itching Verified 05/14/13 10:06 [From Compazine] Home Medications Medication Instructions Recorded Confirmed Last Taken Type Atenolol [Tenormin] 25 mg PO DAILY 05/09/13 03/16/14 05/09/13 03:30 History Lisinopril/Hydrochlorothiazide 1 tab PO DAILY 03/16/14 03/16/14 Unknown History [Zestoretic 20-25 mg] tiZANidine [Zanaflex] 4 mg PO BID PRN 03/16/14 03/16/14 Unknown History Acetaminophen/Codeine [Tylenol 1 tab PO Q8HR PRN #12 tablet 12/10/15 Unknown Rx /Codeine # 3 tab] Active Meds: Active Medications Acetaminophen (Tylenol) 650 mg PO Q4H PRN PRN Reason: Pain, Mild (1-3) Acetaminophen/Hydrocodone Bitart ([place] 5/325) 2 each PO Q6H PRN PRN Reason: Pain, Moderate (4-6) Atorvastatin Calcium (Lipitor) 40 mg PO QHS [facility] Bisacodyl (Dulcolax) 10 mg [place] QDAY PRN PRN Reason: Constipation Docusate Sodium (Colace) 100 mg PO BID [facility] Last Admin: 10/13/17 09:01 Dose: Not Given Hydralazine HCl (Apresoline) 10 mg IV Q6H PRN PRN Reason: Keep SBP between 160-185 mm Hg Sodium Chloride (Nacl 0.9% 1000 Ml) 1,000 mls @ 100 mls/hr IV DIRECT [facility] Last Admin: 10/13/17 02:35 Dose: 100 mls/hr Magnesium Hydroxide (Milk Of Magnesia) 30 ml PO Q4H PRN PRN Reason: Constipation Metoclopramide HCl (Reglan) 10 mg PO Q6H PRN PRN Reason: Nausea And Vomiting Morphine Sulfate (Morphine) 2 mg IV Q4H PRN PRN Reason: Pain, Moderate (4-6) Last Admin: 10/13/17 06:53 Dose: 2 mg Ondansetron HCl (Zofran) 4 mg IV Q8H PRN PRN Reason: N/V unrelieved by Reglan Sodium Chloride (Sodium Chloride Flush Syringe 10 Ml) 10 ml IV PRN PRN PRN Reason: LINE FLUSH Review of Systems All systems: negative Exam - Constitutional Vitals: Temp Pulse Resp BP Pulse Ox 98.3 F 68 17 130/60 99 10/13/17 08:00 10/13/17 11:20 10/13/17 11:20 10/13/17 11:20 10/13/17 11:20 General appearance: Present: no acute distress, well-nourished, obese - EENT Eyes: Present: PERRL, EOM intact ENT: hearing intact, clear oral mucosa - Neck Neck: Present: supple - Respiratory Respiratory effort: normal Respiratory: bilateral: CTA - Cardiovascular Rhythm: regular Heart Sounds: Present: S1 & S2 - Extremities Extremities: no ischemia Extremity abnormal: other (weakness generalized on right) Results - Labs CBC & Chem 7: 10/12/17 20:26 10/12/17 20:13 Labs: Abnormal lab results 10/12/17 10/12/17 10/12/17 Range/Units 20:13 20:13 20:26 WBC 11.5 H (4.5-11.0) K/mm3 [place] % (Auto) 7.4 H (0.0-7.3) % [place] # 0.9 H (0.0-0.8) K/mm3 PT 11.4 L (12.2-14.9) Sec. INR 0.80 L (0.87-1.13) Thrombin Time 14.8 L (15.1-19.6) Sec. Sodium 135 L (137-145) mmol/L Potassium 5.6 H (3.6-5.0) mmol/L Chloride 95.1 L (98-107) mmol/L Carbon Dioxide 20 L (22-30) mmol/L Glucose 104 H (65-100) mg/dL AST 42 H (5-40) units/L Alkaline Phosphatase 133 H (35-129) units/L Total Creatine Kinase (30-135) units/L HDL Cholesterol (40-59) mg/dL 10/12/17 10/13/17 Range/Units 20:26 03:50 WBC (4.5-11.0) K/mm3 [place] % (Auto) (0.0-7.3) % [place] # (0.0-0.8) K/mm3 PT (12.2-14.9) Sec. INR (0.87-1.13) Thrombin Time (15.1-19.6) Sec. Sodium (137-145) mmol/L Potassium (3.6-5.0) mmol/L Chloride (98-107) mmol/L Carbon Dioxide (22-30) mmol/L Glucose (65-100) mg/dL AST (5-40) units/L Alkaline Phosphatase (35-129) units/L Total Creatine Kinase 140 H (30-135) units/L HDL Cholesterol 33 L (40-59) mg/dL - Imaging and Cardiology Chest x-ray: image reviewed (clear) Assessment and Plan 52 y/o female with acute CVA status post TPA and migraines 1. Follow up neuro recs. Reviewed their note. Will start anticoagulation and DVT prophy after 11pm tonight 2. Migraine therapy, in nubain is present, will given 10mg of this, otherwise, if speech clears can try caffeine or sumitriptains to abort. 3. PT/OT. 4. Maintain ICU until 24 hours Post TPA is up. Will manage until tomorrow and then transfer as long as no further complications. CCT 31 minutes.
--- NOTE | 2017-10-13 14:00 | Magnetic Resonance Report ---
MRI OF THE BRAIN WITHOUT CONTRAST: HISTORY: Stroke COMPARISON: CT head dated 10/13/17. PROCEDURE: Multiplanar, multisequence MR imaging of the brain without IV contrast was performed. FINDINGS: The brain parenchyma signal intensity and its wisdom white interface are within normal limits on all sequences. No evidence for acute ischemia, hemorrhage or mass. No chronic infarct or extra-axial fluid collection. The midline structures are central. The basal cisterns are patent. Normal ventricular size. The orbital cavities and sella turcica demonstrate no abnormality. The visualized paranasal sinuses and mastoid air cells are well aerated. IMPRESSION: Unremarkable non-enhanced MRI of the brain.
--- NOTE | 2017-10-13 14:01 | Magnetic Resonance Report ---
MRA NECK WITHOUT CONTRAST HISTORY: Stroke. TECHNIQUE: [id number] imaging with MIP reformations of the neck is submitted. NASCET criteria was utilized with the distal ICA used as standard diameter. FINDINGS: The bilateral carotid and vertebral systems appear widely patent and free of hemodynamically significant stenosis, aneurysm, or dissection. IMPRESSION: Normal MR angiography of the neck.
--- NOTE | 2017-10-13 14:02 | Magnetic Resonance Report ---
MRA HEAD WITHOUT CONTRAST HISTORY: Stroke. [id number] imaging with MIP reformations of the [place] is submitted. NASCET criteria were utilized. The arteries appear widely patent and free of hemodynamically significant stenosis, aneurysm or dissection. origin of the left FREELANCE INTERPRETER/TRANSLATOR is noted IMPRESSION: Unremarkable MRA head.
[2017-10-13] MEDS ORDERED: NUBAIN IV PRN (14:25)
--- NOTE | 2017-10-13 17:10 | Event Note ---
Date: 10/13/17 Vision was seen and evaluated this morning, admitted for CVA with right-sided weakness, and slurring of speech. Patient presented to the emergency department was 45 minutes of the onset of symptoms and was given TPA. Continue management for H&P. Will follow the patient in the ICU today.
[2017-10-13] MEDS: NUBAIN IV PRN ×2 (17:12→23:38)
[2017-10-14 05:19] LABS: Basophils # (Auto) 0.1 K/mm3 (0.0-0.1); Basophils % (Auto) 0.7 % (0.0-1.8); Eosinophils # (Auto) 0.3 K/mm3 (0.0-0.4); Eosinophils % (Auto) 2.7 % (0.0-4.3); Hematocrit 33.9 % (30.3-42.9); Hemoglobin 10.9 gm/dl (10.1-14.3); Lymphocytes # (Auto) 3.2 K/mm3 (1.2-5.4); Mean Corpuscular HGB Conc 32 % (30-34); Mean Corpuscular Hemoglobin 31 pg (28-32); Mean Corpuscular Volume 95 fl (79-97); Monocytes # (Auto) 0.7 K/mm3 (0.0-0.8); Monocytes % (Auto) 7.1 % (0.0-7.3); Platelet Count 241 K/mm3 (140-440); Red Blood Count 3.57 M/mm3 (3.65-5.03); Red Cell Distribution Width 13.9 % (13.2-15.2)
[2017-10-14] MEDS: NACL 0.9% 1000 ML 1,000 ML IV SCH ×2 (06:13→15:23)
[2017-10-14 06:21] LABS: Alanine Aminotransferase 12 units/L (7-56); Albumin 3.3 g/dL (3.9-5); BUN/Creatinine Ratio 20; Blood Urea Nitrogen 12 mg/dL (7-17); Calcium 8.5 mg/dL (8.4-10.2); Hemolysis Index 14
[2017-10-14] MEDS: NUBAIN IV PRN (09:31)
[2017-10-14] MEDS: ECOTRIN PO SCH (09:34)
[2017-10-14] MEDS: COLACE PO SCH ×2 (09:34→21:35)
[2017-10-14] MEDS: ZOFRAN IV PRN ×2 (09:34→21:39)
[2017-10-14] MEDS: HEPARIN SUB-Q SCH ×2 (09:35→21:35)
--- NOTE | 2017-10-14 11:05 | Progress Note ---
Assessment and Plan 1. Acute onset, dizziness, syncope, headache, right side weakness, slurry speech. Admitted for acute CVA, S/P IV TPA. Improved. NIHSS 1. Brain MRI, head and neck MRA without contrast, negative, no acute. Echo, EF, 55-60%, no vegetation, thrombus or PFO reported. 2. OT/PT, rehab and speech pathology. DVT prophylaxis. 3. Pending Lipid profile and A1c. She has had MRA neck and head, don't need Carotid Doppler. 4. H/O atypical migraine headache. Complex migraine headache as differential. PRN headache medicine. 5. HTN. Controlled. Medicine. 6. Quit smoking. 7. Dislipidemia. Statin. 8. Secondary CVA prophylaxis. Aspirin 81 mg q am, Plavix 75 mg q hs for one month, then plavix only or follow neurology suggestions. 9. Plan discussed with her and her nurse. Can move to floor. 10. If D/C, F/U with neurology in 4-6 weeks. 11. Please call tomorrow supervisor fabrication neurologist for following. Subjective Date of service: 10/14/17 Principal diagnosis: CVA. Interval history: Improved. Objective - Vital Sign Vital Signs - 12hr 10/13/17 10/13/17 10/13/17 23:10 23:20 23:30 Temperature Pulse Rate 80 82 83 Pulse Rate [ Apical] Respiratory 17 15 19 Rate Blood Pressure 163/85 163/85 163/85 O2 Sat by Pulse 94 97 97 Oximetry 10/13/17 10/13/17 10/14/17 23:40 23:44 00:00 Temperature 97.8 F Pulse Rate 90 89 83 Pulse Rate [ 80 Apical] Respiratory 18 17 18 Rate Blood Pressure 163/85 163/85 163/85 O2 Sat by Pulse 96 96 97 Oximetry 10/14/17 10/14/17 10/14/17 01:00 02:00 03:00 Temperature Pulse Rate 78 79 75 Pulse Rate [ 75 Apical] Respiratory 19 19 16 Rate Blood Pressure 154/77 145/84 130/56 O2 Sat by Pulse 94 95 92 Oximetry 10/14/17 10/14/17 10/14/17 04:00 05:00 06:00 Temperature Pulse Rate 74 69 79 Pulse Rate [ 82 65 Apical] Respiratory 18 16 17 Rate Blood Pressure 141/68 141/68 162/85 O2 Sat by Pulse 95 95 96 Oximetry 10/14/17 10/14/17 07:00 08:00 Temperature 97.8 F Pulse Rate 75 67 Pulse Rate [ 66 Apical] Respiratory 16 16 Rate Blood Pressure 140/78 140/78 O2 Sat by Pulse 94 97 Oximetry - General Apperance Constitutional: comfortable - EENT EENT: PERRL, vision intact - Respiratory Respiratory: lungs clear, normal breath sounds - Cardiovascular Cardiovascular: regular rate, no murmurs Extremities: no peripheral edema bilat, no clubbing, cyanosis - Gastrointestinal Gastrointestinal: soft, non-tender - Integumentary Integumentary: normal - Neurologic Cranial nerve examination: PERRL, EOMI, intact Speech examination: intact Detailed motor examination: other (Right leg drift. [place] 5/5.) Detailed sensory examination: intact Reflex and gait examination: other (Gait deferred.) Reflexes: 1+: ankle, bicep, knee, tricep - Psychiatric Psychiatric: mood/affect appropriate - Laboratory Findings CBC and BMP: 10/14/17 04:05 10/14/17 04:05 Abnormal Lab Findings: Abnormal Labs 10/12/17 10/12/17 10/12/17 20:13 20:13 20:26 WBC 11.5 H RBC [place] % (Auto) 7.4 H [place] # 0.9 H PT 11.4 L INR 0.80 L Thrombin Time 14.8 L Sodium 135 L Potassium 5.6 H Chloride 95.1 L Carbon Dioxide 20 L Creatinine Glucose 104 H AST 42 H Alkaline Phosphatase 133 H Total Creatine Kinase Total Protein Albumin HDL Cholesterol 10/12/17 10/13/17 10/14/17 20:26 03:50 04:05 WBC RBC 3.57 L [place] % (Auto) [place] # PT INR Thrombin Time Sodium Potassium Chloride Carbon Dioxide Creatinine Glucose AST Alkaline Phosphatase Total Creatine Kinase 140 H Total Protein Albumin HDL Cholesterol 33 L 10/14/17 04:05 WBC RBC [place] % (Auto) [place] # PT INR Thrombin Time Sodium Potassium Chloride Carbon Dioxide Creatinine 0.6 L Glucose 113 H AST Alkaline Phosphatase Total Creatine Kinase Total Protein 5.8 L Albumin 3.3 L HDL Cholesterol
--- NOTE | 2017-10-14 14:51 | Progress Note ---
Assessment and Plan Assessment and plan: 52-year-old -[place] female with previous history significant for TIA presented to the emergency department with complaints of right-sided weakness and slurred speech of 45 minutes duration. Telemetry urology was consulted and TPA was given. MRI head normal, MRA, echo, carotid Doppler was done and unremarkable. Patient's weakness, slurred speech is getting better. PT evaluated her. Currently patient is stable and transferred to the floor. Follow-up PT for recommendation. If patient's weakness and slurred speech subsided, possible discharge tomorrow. DVT prophylaxis; Lovenox. History Interval history: Patient was seen and evaluated this morning, patient's weakness and slurred speech is getting better. Patient starts to ambulate. Hospitalist Physical - Physical exam Narrative exam: Not in cardiopulmonary distress. The patient appeared well nourished and normally developed. Vital signs as documented. Head exam is unremarkable. No scleral icterus . Neck is without jugular venous distension, thyromegaly, or carotid bruits. Lungs are clear to auscultation. Cardiac exam reveals regular rate and Rhythm. First and second heart sounds normal. No murmurs, rubs or gallops. Abdominal exam reveals normal bowel sounds, no masses, no organomegaly and no aortic enlargement. Extremities are nonedematous and both femoral and pedal pulses are normal. CLERK TELEGRAPH SERVICE: Alert and oriented 3. Mild right-sided weakness. - Constitutional Vitals: Temp Pulse Resp BP Pulse Ox 97.8 F 73 19 146/70 96 10/14/17 08:00 10/14/17 12:51 10/14/17 11:30 10/14/17 12:51 10/14/17 12:51 General appearance: Present: no acute distress, well-nourished, obese Results - Labs CBC & Chem 7: 10/14/17 04:05 10/14/17 04:05 Labs: Laboratory Last Values WBC 9.5 K/mm3 (4.5-11.0) 10/14/17 04:05 RBC 3.57 M/mm3 (3.65-5.03) L 10/14/17 04:05 Hgb 10.9 gm/dl (10.1-14.3) 10/14/17 04:05 Hct 33.9 % (30.3-42.9) 10/14/17 04:05 MCV 95 fl (79-97) 10/14/17 04:05 MCH 31 pg (28-32) 10/14/17 04:05 MCHC 32 % (30-34) 10/14/17 04:05 RDW 13.9 % (13.2-15.2) 10/14/17 04:05 Plt Count 241 K/mm3 (140-440) 10/14/17 04:05 Lymph % (Auto) 34.0 % (13.4-35.0) 10/14/17 04:05 [place] % (Auto) 7.1 % (0.0-7.3) 10/14/17 04:05 Eos % (Auto) 2.7 % (0.0-4.3) 10/14/17 04:05 Baso % (Auto) 0.7 % (0.0-1.8) 10/14/17 04:05 Lymph # 3.2 K/mm3 (1.2-5.4) 10/14/17 04:05 [place] # 0.7 K/mm3 (0.0-0.8) 10/14/17 04:05 Eos # 0.3 K/mm3 (0.0-0.4) 10/14/17 04:05 Baso # 0.1 K/mm3 (0.0-0.1) 10/14/17 04:05 Seg Neutrophils % 55.5 % (40.0-70.0) 10/14/17 04:05 Seg Neutrophils # 5.3 K/mm3 (1.8-7.7) 10/14/17 04:05 PT 11.4 Sec. (12.2-14.9) L 10/12/17 20:13 INR 0.80 (0.87-1.13) L 10/12/17 20:13 APTT 27.1 Sec. (24.2-36.6) 10/12/17 20:13 Thrombin Time 14.8 Sec. (15.1-19.6) L 10/12/17 20:13 Sodium 144 mmol/L (137-145) D 10/14/17 04:05 Potassium 3.9 mmol/L (3.6-5.0) D 10/14/17 04:05 Chloride 105.3 mmol/L (98-107) 10/14/17 04:05 Carbon Dioxide 25 mmol/L (22-30) 10/14/17 04:05 Anion Gap 16 mmol/L 10/14/17 04:05 BUN 12 mg/dL (7-17) 10/14/17 04:05 Creatinine 0.6 mg/dL (0.7-1.2) L 10/14/17 04:05 Estimated GFR > 60 ml/min 10/14/17 04:05 BUN/Creatinine Ratio 20 % 10/14/17 04:05 Glucose 113 mg/dL (65-100) H 10/14/17 04:05 POC Glucose 102 (70-105) 10/12/17 20:03 Hemoglobin A1c 5.9 % (4-6) 10/14/17 04:05 Calcium 8.5 mg/dL (8.4-10.2) 10/14/17 04:05 Total Bilirubin 0.30 mg/dL (0.1-1.2) 10/14/17 04:05 AST 15 units/L (5-40) 10/14/17 04:05 ALT 12 units/L (7-56) 10/14/17 04:05 Alkaline Phosphatase 110 units/L (35-129) 10/14/17 04:05 Total Creatine Kinase 140 units/L (30-135) H 10/12/17 20:26 CK-MB (CK-2) 1.5 ng/mL (0.0-4.0) 10/12/17 20:26 CK-MB (CK-2) Rel Index 1.0 (0-4) 10/12/17 20:26 Troponin T < 0.010 ng/mL (0.00-0.029) 10/12/17 20:26 Total Protein 5.8 g/dL (6.3-8.2) L 10/14/17 04:05 Albumin 3.3 g/dL (3.9-5) L 10/14/17 04:05 Albumin/Globulin Ratio 1.3 % 10/14/17 04:05 Triglycerides 40 mg/dL (2-149) 10/13/17 03:50 Cholesterol 96 mg/dL (50-199) 10/13/17 03:50 LDL Cholesterol Direct 61 mg/dL (50-130) 10/13/17 03:50 HDL Cholesterol 33 mg/dL (40-59) L 10/13/17 03:50 Cholesterol/HDL Ratio 2.90 % 10/13/17 03:50 Urine Color Yellow (Yellow) 10/12/17 20:06 Urine Turbidity Clear (Clear) 10/12/17 20:06 Urine pH 7.0 (5.0-7.0) 10/12/17 20:06 Ur Specific [place] 1.014 (1.003-1.030) 10/12/17 20:06 Urine Protein <15 mg/dl mg/dL (Negative) 10/12/17 20:06 Urine Glucose (UA) Neg mg/dL (Negative) 10/12/17 20:06 Urine Ketones Neg mg/dL (Negative) 10/12/17 20:06 Urine Blood Sm (Negative) 10/12/17 20:06 Urine Nitrite Neg (Negative) 10/12/17 20:06 Urine Bilirubin Neg (Negative) 10/12/17 20:06 Urine Urobilinogen < 2.0 mg/dL (<2.0) 10/12/17 20:06 Ur Leukocyte Esterase Neg (Negative) 10/12/17 20:06 Urine WBC (Auto) < 1.0 /HPF (0.0-6.0) 10/12/17 20:06 Urine RBC (Auto) 5.0 /HPF (0.0-6.0) 10/12/17 20:06 U Epithel Cells (Auto) < 1.0 /HPF (0-13.0) 10/12/17 20:06 Urine Opiates Screen Presumptive negative 10/12/17 20:06 Urine Methadone Screen Presumptive negative 10/12/17 20:06 Ur Barbiturates Screen Presumptive negative 10/12/17 20:06 Ur Phencyclidine Scrn Presumptive negative 10/12/17 20:06 Ur Amphetamines Screen Presumptive negative 10/12/17 20:06 U Benzodiazepines Scrn Presumptive negative 10/12/17 20:06 Urine Cocaine Screen Presumptive negative 10/12/17 20:06 U Marijuana (THC) Screen Presumptive negative 10/12/17 20:06 Drugs of Abuse Note Disclamer 10/12/17 20:06 Plasma/Serum Alcohol < 0.01 % (0-0.07) 10/12/17 20:26 Blood Type O POSITIVE 10/12/17 20:26 Antibody Screen Negative 10/12/17 20:26
[2017-10-14] MEDS ORDERED: MORPHINE IV PRN (16:09)
--- NOTE | 2017-10-14 16:10 | Progress Note ---
Assessment and Plan 52 y/o female with acute CVA status post TPA and migraines 1. Stable from a critical care standpoint 2. Stable for transfer 3. Will sign off. Subjective Date of service: 10/14/17 Principal diagnosis: CVA. Interval history: No acute events. Per nursing, strength has improved. Objective - Constitutional Vitals: Vital Signs - 12hr 10/14/17 10/14/17 10/14/17 05:00 06:00 07:00 Temperature Pulse Rate 69 79 75 Pulse Rate [ 65 Apical] Respiratory 16 17 16 Rate Respiratory Rate [Head] Blood Pressure 141/68 162/85 140/78 O2 Sat by Pulse 95 96 94 Oximetry 10/14/17 10/14/17 10/14/17 08:00 09:00 09:30 Temperature 97.8 F Pulse Rate 67 73 63 Pulse Rate [ 66 Apical] Respiratory 16 17 17 Rate Respiratory Rate [Head] Blood Pressure 140/78 154/72 154/74 O2 Sat by Pulse 97 100 100 Oximetry 10/14/17 10/14/17 10/14/17 10:00 10:30 11:00 Temperature Pulse Rate 73 67 60 Pulse Rate [ Apical] Respiratory 12 12 15 Rate Respiratory 18 Rate [Head] Blood Pressure 175/82 175/82 143/85 O2 Sat by Pulse 97 Oximetry 10/14/17 10/14/17 10/14/17 11:10 11:20 11:30 Temperature Pulse Rate 73 74 73 Pulse Rate [ Apical] Respiratory 10 L 12 19 Rate Respiratory Rate [Head] Blood Pressure 143/85 143/85 143/85 O2 Sat by Pulse 98 100 91 Oximetry 10/14/17 12:51 Temperature Pulse Rate 73 Pulse Rate [ Apical] Respiratory Rate Respiratory Rate [Head] Blood Pressure 146/70 O2 Sat by Pulse 96 Oximetry - Labs CBC & Chem 7: 10/14/17 04:05 10/14/17 04:05 Labs: Abnormal lab results 10/14/17 10/14/17 Range/Units 04:05 04:05 RBC 3.57 L (3.65-5.03) M/mm3 Creatinine 0.6 L (0.7-1.2) mg/dL Glucose 113 H (65-100) mg/dL Total Protein 5.8 L (6.3-8.2) g/dL Albumin 3.3 L (3.9-5) g/dL
[2017-10-14] MEDS: MORPHINE IV PRN (21:39)
[2017-10-15] MEDS: NACL 0.9% 1000 ML 1,000 ML IV SCH (04:23)
[2017-10-15] MEDS: MORPHINE IV PRN (04:24)
[2017-10-15] MEDS: HEPARIN SUB-Q SCH (09:44)
[2017-10-15] MEDS: COLACE PO SCH (09:45)
[2017-10-15] MEDS: ECOTRIN PO SCH (09:45)
--- NOTE | 2017-10-15 11:54 | Discharge Summary ---
Providers - Providers Date of Admission: 10/12/17 23:56 Date of discharge: 10/16/17 Attending physician: AMAURY WILSON MD 10/12/17 23:57 Consult to Case Management [CONS] Routine Services Needed at Discharge: Other Notified:: rehabilitation caseworker Additional Physician Instructions: REHAB PLACEMENT Occupational Therapy Evaluate and Treat [CONS] Routine Comment: Reason For Exam: Neuro deficits Physical Therapy Evaluation and Treat [CONS] Routine Comment: Reason For Exam: Neuro deficits 10/13/17 Consult to Physician [CONS] Routine Comment: Consulting Provider: SAMARA DAVIS Physician Instructions: Reason For Exam: ACUTE STROKE S/P TPA Consult to Physician [CONS] Routine Comment: Consulting Provider: JOSE GUADALUPE ESCOBAR Physician Instructions: Reason For Exam: ACUTE STROKE S/P TPA 10/13/17 00:01 Speech Therapy Evaluation and Treat [CONS] Routine Reason For Exam: swallow eval Primary care physician: MIRANDA LOPEZ Hospitalization Reason for admission: CVA Condition: Stable Pertinent studies: CT, MRI, MRA head unremarkable Cardotid doppler < 50% stenosis Hospital course: 52-year-old -[place] female with previous history significant for TIA presented to the emergency department with complaints of right-sided weakness and slurred speech of 45 minutes duration. Teleneurology was consulted and TPA was given. MRI head normal, MRA, echo, carotid Doppler was done and unremarkable. Patient's weakness, slurred speech resolved. PT evaluated her, patient has full functional recovery and discharged home in a stable condition. Patient was on plavix and statin, advised to continue to take it. patient said she will see her neurologist after discharge. Disposition: - TO HOME OR SELFCARE Time spent for discharge: 31 minutes - Discharge Diagnoses (1) Acute CVA (cerebrovascular accident) Status: Acute (2) Hypertension Status: Chronic Qualifiers: Hypertension type: essential hypertension Qualified Code(s): I10 - Essential (primary) hypertension Core Measure Documentation - Palliative Care Palliative Care/ Comfort Measures: Not Applicable - Core Measures Any of the following diagnoses?: stroke - Stroke Discharge Requirements Statin for LDL = or >70 mg/dl on DC: Yes Anticoag for atrial fib/atrial flutter: Not Applicable Antithrombotic for ischemic stroke: Yes Exam - Physical Exam Narrative exam: Not in cardiopulmonary distress. The patient appeared well nourished and normally developed. Vital signs as documented. Head exam is unremarkable. No scleral icterus . Neck is without jugular venous distension, thyromegaly, or carotid bruits. Lungs are clear to auscultation. Cardiac exam reveals regular rate and Rhythm. First and second heart sounds normal. No murmurs, rubs or gallops. Abdominal exam reveals normal bowel sounds, no masses, no organomegaly and no aortic enlargement. Extremities are nonedematous and both femoral and pedal pulses are normal. EMERGING TECHNOLOGIES DIRECTOR: Alert and oriented 3. Mild right-sided weakness. - Constitutional Vitals: Temp Pulse Resp BP Pulse Ox 98.3 F 66 17 171/80 99 10/15/17 07:49 10/15/17 07:49 10/15/17 07:49 10/15/17 07:49 10/15/17 09:21 Plan Activity: no restrictions Weight Bearing Status: Full Weight Bearing Diet: low cholesterol, low salt Follow up with: MIRANDA LOPEZ MD [Primary Care Provider] - 7 Days Prescriptions: Clopidogrel Bisulfate [Plavix] 75 mg PO DAILY #30 tablet
[2017-10-15 12:30] VITALS: BP 133/66
== END 2017-10-15 13:51 | disposition home or self-care (01) | DRG 62 ==
LOC: ED 19:50 → CC1 23:56 → 4A 10-14 12:23
PROVIDERS: ADMIT Internal Medicine; ATTEND Internal Medicine
DX: I63.9 Cerebral infarction, unspecified (principal); G81.91 Hemiplegia, unspecified affecting right dominant side; I16.1 Hypertensive emergency; I10 Essential (primary) hypertension; I73.9 Peripheral vascular disease, unspecified; G43.909 Migraine, unspecified, not intractable, without status migrainosus; F17.200 Nicotine dependence, unspecified, uncomplicated; G89.29 Other chronic pain; M54.9 Dorsalgia, unspecified; E87.5 Hyperkalemia; R74.0 Nonspecific elevation of levels of transaminase and lactic acid dehydrogenase [LDH]; D72.829 Elevated white blood cell count, unspecified; E78.5 Hyperlipidemia, unspecified; Z79.899 Other long term (current) drug therapy; Z98.51 Tubal ligation status; Z72.89 Other problems related to lifestyle; Z90.49 Acquired absence of other specified parts of digestive tract
CPT/HCPCS: 36415; 70450; 70544; 70547; 70551; 71045; 80053; 80061; 80307; 80320; 81001; 82550; 82553; 82962; 83036; 84484; 85025; 85610; 85670; 85730; 86850; 86900; 86901; 93005; 93010; 93306; 93880; 94760; 96374; 96375; 99406; A9270-GY; G0480; J1644; J1815; J2270; J2300; J2405; J2997; J7030

== ENCOUNTER 2018-07-25 16:23 | Inpatient (IN) | payer OTHER ==
[2018-07-25] MEDS ORDERED: ZOFRAN IV ONE (16:47)
[2018-07-25] MEDS ORDERED: NORMODYNE IV ONE (16:47)
[2018-07-25] MEDS ORDERED: MORPHINE IV ONE (16:47)
--- NOTE | 2018-07-25 16:51 | Emergency Department Report ---
ED Chest Pain HPI - General Chief Complaint: Chest Pain Stated Complaint: CHEST PAIN/SOB Time Seen by Provider: 07/25/18 16:42 Source: patient Mode of arrival: Wheelchair Limitations: No Limitations - History of Present Illness Initial Comments: Patient is 53 years old female with history of hypertension, diabetes, TIA. Patient presented to the ER with sudden onset of substernal chest pain, tightness in nature radiating to her back. Patient presented with a blood pressure of more than 200 systolic and more than 110 diastolic. Patient also stating that she denies having shortness of breath also. His symptoms started approximately 1 hour prior to admission to the ER. The patient denied any cough or fever and no nausea or vomiting. Patient also denied any abdominal pain. MD Complaint: chest pain -: hour(s) Onset: during rest Severity: severe Severity scale (0 -10): 10 Quality: tightness, sharp Consistency: constant Improves With: nothing Worsens With: nothing Treatments Prior to Arrival: none - Related Data Home Medications Medication Instructions Recorded Confirmed Last Taken Atenolol [Tenormin] 25 mg PO DAILY 05/09/13 03/16/14 05/09/13 03:30 Lisinopril/Hydrochlorothiazide 1 tab PO DAILY 03/16/14 03/16/14 Unknown [Zestoretic 20-25 mg] tiZANidine [Zanaflex] 4 mg PO BID PRN 03/16/14 03/16/14 Unknown Previous Rx's Medication Instructions Recorded Last Taken Type Acetaminophen/Codeine [Tylenol 1 tab PO Q8HR PRN #12 tablet 12/10/15 Unknown Rx /Codeine # 3 tab] Aspirin EC [Aspirin Enteric Coated 325 mg PO QDAY tablet 10/15/17 Unknown Rx TAB] AtorvaSTATin [Lipitor] 40 mg PO QHS tablet 10/15/17 Unknown Rx Clopidogrel Bisulfate [Plavix] 75 mg PO DAILY #30 tablet 10/15/17 Unknown Rx Allergies Allergy/AdvReac Type Severity Reaction Status Date / Time clarithromycin [From Biaxin] Allergy Swelling Verified 05/14/13 10:06 prochlorperazine edisylate Allergy Itching Verified 05/14/13 10:06 [From Compazine] prochlorperazine maleate Allergy Itching Verified 05/14/13 10:06 [From Compazine] Heart Score - HEART Score History: Moderately suspicious EKG: Non-specific Age: 45-65 Risk factors: > 3 risk factors or hx of atherosclerotic disease Troponin: < normal limit HEART Score: 5 - Critical Actions Critical Actions: 4-6 pts:12-16.6% risk of adverse cardiac event. Should be admitted ED Review of Systems ROS: Stated complaint: CHEST PAIN/SOB Other details as noted in HPI Comment: All other systems reviewed and negative Constitutional: denies: chills, fever ENT: denies: ear pain Respiratory: shortness of breath, SOB at rest. denies: cough, orthopnea, SOB with exertion, wheezing Cardiovascular: chest pain. denies: palpitations, dyspnea on exertion, orthopnea Gastrointestinal: denies: abdominal pain, nausea, vomiting, diarrhea, constipation, hematemesis, melena, hematochezia Musculoskeletal: denies: back pain Neurological: denies: headache, weakness, numbness, paresthesias, confusion, abnormal gait ED Past Medical Hx - Past Medical History Hx Hypertension: Yes Hx Congestive Heart Failure: No Hx Diabetes: No Hx Arthritis: No Hx Headaches / Migraines: Yes Hx Asthma: No Hx COPD: No - Surgical History Hx Appendectomy: Yes Additional Surgical History: tubligation - Social History Smoking Status: Current Every Day Smoker - Medications Home Medications: Home Medications Medication Instructions Recorded Confirmed Last Taken Type Atenolol [Tenormin] 25 mg PO DAILY 05/09/13 03/16/14 05/09/13 03:30 History Lisinopril/Hydrochlorothiazide 1 tab PO DAILY 03/16/14 03/16/14 Unknown History [Zestoretic 20-25 mg] tiZANidine [Zanaflex] 4 mg PO BID PRN 03/16/14 03/16/14 Unknown History Acetaminophen/Codeine [Tylenol 1 tab PO Q8HR PRN #12 tablet 12/10/15 Unknown Rx /Codeine # 3 tab] Aspirin EC [Aspirin Enteric Coated 325 mg PO QDAY tablet 10/15/17 Unknown Rx TAB] AtorvaSTATin [Lipitor] 40 mg PO QHS tablet 10/15/17 Unknown Rx Clopidogrel Bisulfate [Plavix] 75 mg PO DAILY #30 tablet 10/15/17 Unknown Rx ED Physical Exam - General Limitations: No Limitations General appearance: alert, in distress - Head Head exam: Present: atraumatic, normocephalic, normal inspection - Eye Eye exam: Present: normal appearance - ENT ENT exam: Present: normal exam, normal orophraynx, mucous membranes moist - Neck Neck exam: Present: normal inspection, full ROM. Absent: tenderness, meningismus, lymphadenopathy, thyromegaly - Respiratory Respiratory exam: Present: normal lung sounds bilaterally. Absent: respiratory distress, wheezes, rales, rhonchi, stridor, chest wall tenderness, accessory muscle use, decreased breath sounds, prolonged expiratory - Cardiovascular Cardiovascular Exam: Present: regular rate, normal rhythm, normal heart sounds - GI/Abdominal GI/Abdominal exam: Present: soft, normal bowel sounds. Absent: distended, tenderness, guarding, rebound, rigid, organomegaly, mass, bruit, pulsatile mass - Extremities Exam Extremities exam: Present: normal inspection, full ROM, normal capillary refill. Absent: pedal edema, calf tenderness - Back Exam Back exam: Present: normal inspection, full ROM. Absent: CVA tenderness (L), muscle spasm, paraspinal tenderness - Neurological Exam Neurological exam: Present: alert, oriented X3, CN II-XII intact, normal gait, reflexes normal - Psychiatric Psychiatric exam: Present: normal mood - Skin Skin exam: Present: warm, intact, normal color ED Course Vital Signs 07/25/18 07/25/18 07/25/18 16:41 17:01 17:05 Pulse Rate 68 70 Respiratory 16 14 Rate Blood Pressure Blood Pressure 187/111 167/78 [Right] O2 Sat by Pulse 97 100 98 Oximetry 07/25/18 07/25/18 07/25/18 17:22 17:50 17:54 Pulse Rate 69 67 67 Respiratory 16 13 Rate Blood Pressure 174/72 Blood Pressure 186/93 [Right] O2 Sat by Pulse 100 100 Oximetry 07/25/18 07/25/18 07/25/18 18:00 18:16 18:30 Pulse Rate 64 60 60 Respiratory 15 26 H 16 Rate Blood Pressure 196/92 192/94 180/105 Blood Pressure [Right] O2 Sat by Pulse 99 100 98 Oximetry 07/25/18 07/25/18 07/25/18 18:45 19:00 19:16 Pulse Rate 61 60 65 Respiratory 17 16 13 Rate Blood Pressure 187/98 187/98 188/102 Blood Pressure [Right] O2 Sat by Pulse 96 98 99 Oximetry 07/25/18 07/25/18 07/25/18 19:46 20:00 20:16 Pulse Rate 64 68 67 Respiratory 13 15 18 Rate Blood Pressure 172/79 165/89 165/89 Blood Pressure [Right] O2 Sat by Pulse 100 96 99 Oximetry 07/25/18 07/25/18 07/25/18 20:30 20:46 21:00 Pulse Rate 66 61 63 Respiratory 14 13 16 Rate Blood Pressure 165/89 165/89 174/98 Blood Pressure [Right] O2 Sat by Pulse 99 99 Oximetry 07/25/18 07/25/18 21:16 21:30 Pulse Rate 57 L 62 Respiratory 16 13 Rate Blood Pressure 174/98 174/98 Blood Pressure [Right] O2 Sat by Pulse 99 100 Oximetry - Consultations Consultation #1: 07/25/18 22:36 I discussed the patient is Dr. Rizo, he agreed to admit the patient to medical service. ANTON score - Anton Score Age > 65: (0) No Aspirin use within the Past 7 Days: (0) No 3 or more CAD Risk Factors: (1) Yes 2 or more Angina events in past 24 hrs: (0) No Known CAD with more than 50% Stenosis: (0) No Elevated Cardiac Markers: (0) No ST Deviation Greater than 0.5mm: (0) No ANTON Score: 1 ED Medical Decision Making - Lab Data Result diagrams: 07/25/18 17:08 07/25/18 17:08 - EKG Data -: EKG Interpreted by [facility] EKG shows normal: sinus rhythm Rate: normal - EKG Data Interpretation: no acute changes - Radiology Data Radiology results: report reviewed Referring Physician: HELIO LOPEZ Patient Name: CORNELIO LAWS Date of : 1965 Sex: Female Report Date: 2018-07-25 Report Status: [place] [address] Cat Scan Report Signed Patient: CORNELIO LAWS MR#: [id number] : 1965 Acct:[id number] Age/Sex: 53 / F ADM Date: 07/25/18 Loc: ED Attending Dr: Ordering Physician: HELIO LOPEZ Date of Service: 07/25/18 Procedure(s): CT angio abdomen pelvis Accession Number(s): [id number] cc: HELIO SUHJOSE ARMANDODaniel FINAL REPORT EXAM: CT ANGIO ABDOMEN PELVIS HISTORY: chest pain, high BP, rule out aortic dissection TECHNIQUE: CT abdomen and pelvis with intravenous contrast PRIORS: None. FINDINGS: No acute abnormality identified in the lung bases. No focal abnormality identified within the liver parenchyma. The spleen demonstrates normal size and attenuation. No pancreatic abnormalities seen. The kidneys demonstrate symmetric contrast enhancement. No evidence of hydronephrosis. The adrenal glands are unremarkable Abdominal aorta is normal in caliber. No evidence for dissection. There is heart soft plaque within mid to distal abdominal aorta no hemodynamically significant stenosis. There is arterial stent within the left common iliac artery which appears patent there is flow seen to internal and external iliacs common femoral arteries bilaterally. There is normal flow to renal arteries without evidence for stenosis. SMA and celiac axis are unremarkable. No pathologically enlarged lymph nodes are identified. No signs of free fluid or free air No evidence of small bowel dilatation. Colon is nondistended. No pericolonic inflammatory change. Urinary bladder is unremarkable. IMPRESSION: No evidence for aortic aneurysm or dissection. Atherosclerosis noted with a a rterial stent in the left common iliac artery which appears patent. Transcribed By: GRACIE Dictated By: MEET MORILLO MD Electronically Authenticated By: MEET MORILLO MD Signed Date/Time: 07/25/181919 DD/ 18 TD/TT: 07/25/181918 - Medical Decision Making Patient is 53 years old female with history of hypertension, diabetes, TIA. P nicole presented to the ER with sudden onset of substernal chest pain, tightness in nature radiating to her back. Patient presented with a blood pressure of more than 200 systolic and more than 110 diastolic. Patient also stating that she denies having shortness of breath also. His symptoms started approximately 1 hour prior to admission to the ER. The patient denied any cough or fever and no nausea or vomiting. Patient also denied any abdominal pain. Patient evaluated by me multiple times. Patient stated that she is feeling better. EKG is unremarkable. Initial differential diagnosis included aortic dissection and pulmonary embolism however CTA chest and abdomen is negative for aortic dissection and pulmonary embolism. The patient is a high-risk carotid artery disease patient. I discussed the patient is Dr. Galvan, he agreed to admit patient to medical service. Critical Care Time: Yes Critical care time in (mins) excluding proc time.: 30 Critical care attestation.: If time is entered above; I have spent that time in minutes in the direct care of this critically ill patient, excluding procedure time. ED Disposition Clinical Impression: Chest pain Disposition: OP ADMIT IP TO THIS HOSP Is pt being admited?: Yes Condition: Stable Instructions: Chest Pain (ED) Referrals: SARY THOMAS MD [Primary Care Provider] - 3-5 Days
[2018-07-25 17:39] LABS: Basophils # (Auto) 0.1 K/mm3 (0.0-0.1); Basophils % (Auto) 1.4 % (0.0-1.8); Eosinophils # (Auto) 0.2 K/mm3 (0.0-0.4); Eosinophils % (Auto) 2.7 % (0.0-4.3); Hematocrit 39.2 % (30.3-42.9); Hemoglobin 13.1 gm/dl (10.1-14.3); Lymphocytes % (Auto) 26.9 % (13.4-35.0); Mean Corpuscular HGB Conc 33 % (30-34); Mean Corpuscular Volume 93 fl (79-97); Monocytes # (Auto) 0.6 K/mm3 (0.0-0.8); Monocytes % (Auto) 7.7 % (0.0-7.3); Platelet Count 285 K/mm3 (140-440); Red Blood Count 4.24 M/mm3 (3.65-5.03); Red Cell Distribution Width 15.7 % (13.2-15.2)
[2018-07-25 17:50] LABS: BUN/Creatinine Ratio 11; Blood Urea Nitrogen 8 mg/dL (7-17); Calcium 9.4 mg/dL (8.4-10.2); Hemolysis Index 2
[2018-07-25 18:05] LABS: INR 0.96 (0.87-1.13)
--- NOTE | 2018-07-25 18:56 | Cat Scan Report ---
FINAL REPORT EXAM: CT ANGIO CHEST HISTORY: chest pain, high BP, rule out aortic dissection TECHNIQUE: CT examination of the chest with IV contrast CT angiographic 2D and thick slab 3D image post-processing PRIORS: One-view chest 10/12/2017 FINDINGS: The slight cardiomegaly without pericardial effusion. Cardiothoracic ratio is 14.1/24.8. Intact normal caliber thoracic aorta. No CT evidence of aneurysm or dissection. Normal-appearing esophagus. No evidence of hilar mass or mediastinal adenopathy. The visualized pulmonary arteries are diffusely patent bilaterally. There is no filling defect to sug gest PE. Degenerative change in the regional skeleton. No evidence of acute fracture. No pneumothorax, pleural effusion, or focal pulmonary consolidation. No evidence of lung mass or pulm onary nodule. IMPRESSION: Slight cardiomegaly without acute cardiopulmonary disease No CT evidence of aortic aneurysm or dissection No CT evidence of large vessel or central pulmonary emboli.
[2018-07-25] MEDS ORDERED: MORPHINE IM ONE (19:01)
--- NOTE | 2018-07-25 19:20 | Cat Scan Report ---
FINAL REPORT EXAM: CT ANGIO ABDOMEN PELVIS HISTORY: chest pain, high BP, rule out aortic dissection TECHNIQUE: CT abdomen and pelvis with intravenous contrast PRIORS: None. FINDINGS: No acute abnormality identified in the lung bases. No focal abnormality identified within the liver parenchyma. The spleen demonstrates normal size and attenuation. No pancreatic abnormalities seen. The kidneys demonstrate symmetric contrast enhancement. No evidence of hydronephrosis. The adrenal glands are unremarkable Abdominal aorta is normal in caliber. No evidence for dissection. There is heart soft plaque within m id to distal abdominal aorta no hemodynamically significant stenosis. There is arterial stent within the left common iliac artery which appears patent there is flow seen to internal and external iliacs common femoral arteries bilaterally. There is normal flow to renal arteries without evidence for sten osis. SMA and celiac axis are unremarkable. No pathologically enlarged lymph nodes are identified. No signs of free fluid or free air No evidence of small bowel dilatation. Colon is nondistended. No pericolonic inflammatory change. Urinary bladder is unremarkable. IMPRESSION: No evidence for aortic aneurysm or dissection. Atherosclerosis noted with a arterial stent in the lef t common iliac artery which appears patent.
[2018-07-25] MEDS ORDERED: BABY ASPIRIN PO ONE (19:21)
[2018-07-25] MEDS ORDERED: K-DUR PO ONE (23:07)
[2018-07-25] MEDS ORDERED: ZOFRAN IV PRN (23:10)
[2018-07-25] MEDS ORDERED: NITROSTAT SL PRN (23:12)
[2018-07-25] MEDS ORDERED: TYLENOL PO PRN (23:13)
[2018-07-26] MEDS ORDERED: APRESOLINE IV ONE (00:04)
[2018-07-26] MEDS ORDERED: NITRO-BID 2% TP ONE ×2 (00:07→00:14)
[2018-07-26] MEDS ORDERED: K-DUR PO ONE ×2 (00:14→00:17)
[2018-07-26] MEDS ORDERED: APRESOLINE ONE (00:14)
[2018-07-26] MEDS ORDERED: TYLENOL ONE (00:42)
[2018-07-26] MEDS: MORPHINE IV PRN ×2 (01:25→10:16)
[2018-07-26] MEDS ORDERED: APRESOLINE IV PRN (05:43)
[2018-07-26] MEDS: NITRO-BID 2% TP SCH ×3 (05:54→14:02)
[2018-07-26 06:13] LABS: Creatine Kinase MB 1.3 ng/mL (0.0-4.0)
[2018-07-26] MEDS ORDERED: LEXISCAN IV ONE ×2 (08:02→08:14)
--- NOTE | 2018-07-26 08:05 | History and Physical Report ---
CHIEF COMPLAINT: Chest pain. HISTORY OF PRESENTING ILLNESS: The patient is a 53-year-old female with history of hypertension, diabetes mellitus and TIA, presenting to the Emergency Room with substernal chest pain that radiates to the back and the patient describes the pain as tightness in the substernal and also precordial area. There is associated elevated blood pressure with systolic blood pressure of about 200 and diastolic of about 110. There is history of nausea. There is history of diaphoresis. There is associated shortness of breath, but no dizziness. PAST MEDICAL HISTORY: Pertinent for diabetes mellitus, hypertension, migraine headache. PAST SURGICAL HISTORY: Pertinent for tubal ligation. FAMILY HISTORY: Family history is pertinent for coronary artery disease in the brother. SOCIAL HISTORY: The patient smokes cigarettes, does not drink alcohol, does not use illicit drugs. MEDICATIONS: The patient is on atenolol 25 mg by mouth daily, lisinopril/hydrochlorothiazide 20/25 mg 1 by mouth daily, tizanidine or Zanaflex 4 mg by mouth twice daily, Tylenol No. 3 one by mouth every 8 hours as needed for pain. The patient is also on aspirin 325 mg by mouth daily and atorvastatin 40 mg by mouth at bedtime, and clopidogrel 75 mg by mouth daily. ALLERGIES: THE PATIENT IS ALLERGIC TO CLARITHROMYCIN, PROCHLORPERAZINE EDISYLATE, PROCHLORPERAZINE MALEATE. REVIEW OF SYSTEMS: CONSTITUTIONAL: There is no fever, no chills. Diaphoresis is present. HEENT: There is no headache or sore throat. CARDIOVASCULAR SYSTEM: Chest pain is present. There is no orthopnea. RESPIRATORY SYSTEM: There is shortness of breath, but no cough. GASTROINTESTINAL SYSTEM: There is nausea, but no vomiting, no abdominal pain, diarrhea or constipation. NEUROLOGICAL SYSTEM: There is no numbness, no dizziness, no altered mental status. MUSCULOSKELETAL SYSTEM: There is no joint pain or swelling. DERMATOLOGICAL SYSTEM: There is no skin rash or itching. GENITOURINARY SYSTEM: There is no dysuria, hematuria or flank pain. Rest of system review is normal. PHYSICAL EXAMINATION: GENERAL: At the time of exam, the patient was found to be alert, oriented x 3 and not in acute distress. VITAL SIGNS: At the initial time of presentation show normal temperature with pulse of 68, respiration 16, blood pressure 187/110, O2 sat of 97% on room air. The patient's blood pressure eventually came down to 174/98. HEENT: Show pupils to be equal, round, reactive to light and accommodating. Extraocular muscles intact. NECK: Neck is supple with no JVD or carotid bruit. CARDIOVASCULAR SYSTEM: Showed normal first and second heart sounds with no gallops or murmurs. RESPIRATORY SYSTEM: Show good air entry on both sides of the lung with no abnormal breath sounds. GASTROINTESTINAL SYSTEM: Show abdomen to be full, soft, nontender with no organomegaly or rigidity. NEUROLOGIC: Neuro exam shows no focal deficit. MUSCULOSKELETAL SYSTEM: Show no joint swelling or tenderness. DERMATOLOGICAL SYSTEM: Showing no skin rash. GENITOURINARY SYSTEM: Showing no costovertebral angle tenderness. PERTINENT LABORATORY DATA AND IMAGING STUDIES: The patient had CT angiogram of the abdomen done which shows no evidence of aortic aneurysm or dissection; however, atherosclerosis was noted with arterial stent in the left common iliac artery which appears patent. Also, the patient has CT angiogram of the chest done. CT angiogram of the chest shows slight cardiomegaly without acute cardiopulmonary diseases. No evidence of aortic aneurysm or dissection. There is no evidence of large vessel or central pulmonary emboli. Lab results; the patient has CBC done that came back unremarkable except for increasing monocyte count of 7.7 on CBC differential. Coagulation studies were unremarkable and the patient's chemistry show low potassium level of 3.2. Cardiac enzymes were all normal. DIAGNOSES: 1. Chest pain, rule out myocardial infarction. 2. Hypertensive crisis. 3. Hypokalemia. PLAN OF CARE: 1. The patient will be admitted to telemetry. 2. The patient will have cardiac enzymes involving troponin, total CK and CK-MB check serially q. 6 hours x 2 more levels. 3. The patient will have 40 mEq of potassium by mouth one time. 4. The patient will be n.p.o. for Lexiscan stress test this morning. 5. The patient will be on IV morphine 2 mg every 3 hours as needed for pain and will be on IV Zofran 4 mg every 8 hours for nausea and vomiting. The patient will be on nitroglycerin paste half inch to anterior chest wall q.i.d. and will be on sublingual nitroglycerin 0.4 mg every 5 minutes as needed for breakthrough chest pain. 6. The patient will be on aspirin 325 mg by mouth daily and will be on heparin 5000 units subQ q. 12 hours for DVT prophylaxis. 7. The patient will be on IV hydralazine 10 mg every 4 hours as needed for elevated blood pressure of 160/90 or more. 8. The patient will be on oxygen by nasal cannula at 2 liter per minute. 9. The patient will be on Tylenol 650 mg every 4 hours for fever and headache. JOB# [id number] OCN/NTS MTDD
[2018-07-26] MEDS ORDERED: ASPIRIN PO SCH (10:00)
[2018-07-26] MEDS ORDERED: HEPARIN SUB-Q SCH (10:00)
[2018-07-26] MEDS ORDERED: ZANAFLEX PO PRN (10:27)
--- NOTE | 2018-07-26 10:29 | Discharge Summary ---
Providers - Providers Date of Admission: 07/25/18 23:04 Date of discharge: 07/26/18 Attending physician: JUAN JOSE MARKS Primary care physician: SARY THOMAS Hospitalization Reason for admission: cp Condition: Stable Hospital course: Patient is 53 years old female with history of hypertension, diabetes, TIA. Patient presented to the ER with sudden onset of substernal chest pain, tightness in nature radiating to her back. Patient presented with a blood pressure of more than 200 systolic and more than 110 diastolic. Patient also stating that she denied having shortness of breath. His symptoms started approximately 1 hour prior to admission to the ER. The patient denied any cough or fever and no nausea or vomiting. Patient also denied any abdominal pain. The patient was admitted with diagnosis of chest pain and accelerated hypertension. CTA of the chest showed no evidence of pulmonary embolus or dissection. The blood pressure was treated with IV hydralazine and labetalol. Patient is to undergo Lexiscan and found to be negative will be discharged home. The patient's home medications were resumed and blood pressure controlled. Patient is felt to have received maximal hospital benefit and will be discharged home. Dedicated discharge time 32 minutes. Disposition: DC-01 TO HOME OR SELFCARE Time spent for discharge: 32 - Discharge Diagnoses (1) Accelerated hypertension Status: Acute (2) Chest pain Status: Acute Core Measure Documentation - Palliative Care Palliative Care/ Comfort Measures: Not Applicable - Core Measures Any of the following diagnoses?: none Exam - Constitutional Vitals: Temp Pulse Resp BP Pulse Ox 98.2 F 60 14 142/61 98 07/26/18 04:55 07/26/18 04:55 07/26/18 04:55 07/26/18 04:55 07/26/18 09:50 General appearance: Present: no acute distress, well-nourished - EENT Eyes: Present: PERRL ENT: hearing intact, clear oral mucosa - Neck Neck: Present: supple, normal ROM - Respiratory Respiratory effort: normal Respiratory: bilateral: CTA - Cardiovascular Heart Sounds: Present: S1 & S2. Absent: rub, click - Extremities Extremities: pulses symmetrical, No edema Peripheral Pulses: within normal limits - Abdominal General gastrointestinal: Present: soft, non-tender, non-distended, normal bowel sounds Female genitourinary: Present: normal - Integumentary Integumentary: Present: clear, warm, dry - Musculoskeletal Musculoskeletal: gait normal, strength equal bilaterally - Psychiatric Psychiatric: appropriate mood/affect, intact judgment & insight - Neurologic Neurologic: CNII-XII intact, moves all extremities Plan Activity: no restrictions Weight Bearing Status: Full Weight Bearing Diet: low fat, low cholesterol, low salt Follow up with: SARY THOMAS MD [Primary Care Provider] - 3-5 Days Forms: Discharge Signature Page Prescriptions: RX: Acetaminophen/Codeine [Tylenol /Codeine # 3 tab] 1 tab PO Q8HR PRN #12 tablet PRN Reason: Pain RX: Aspirin EC [Aspirin Enteric Coated TAB] 325 mg PO QDAY #30 tablet RX: Atenolol [Tenormin] 25 mg PO DAILY #30 tablet RX: AtorvaSTATin [Lipitor] 40 mg PO QHS #30 tablet busPIRone 10 mg PO BID #60 RX: Clopidogrel Bisulfate [Plavix] 75 mg PO DAILY #30 tablet Labetalol HCl 200 mg PO QDAY #30 RX: Lisinopril/Hydrochlorothiazide [Zestoretic 20-25 mg] 1 tab PO QDAY #30 tab Spironolactone 25 mg PO QDAY #30 RX: tiZANidine [Zanaflex] 4 mg PO BID PRN #10 tablet PRN Reason: Pain
[2018-07-26] MEDS ORDERED: TYLENOL #3 PO PRN (11:51)
[2018-07-26 13:22] VITALS: BP 140/68
[2018-07-26] MEDS ORDERED: BUSPAR PO SCH (22:00)
[2018-07-26] MEDS ORDERED: BUSPIRONE 10 MG PO SCH (22:00)
--- NOTE | 2018-07-27 00:19 | Treadmill Report ---
SINGLE ISOTOPE DUAL STUDY MYOCARDIAL PERFUSION SCAN REFERRING PHYSICIAN: Dr. Rajinder Rizo. [facility] DESCRIPTION OF THE PROCEDURE: The patient received 10 mCi of technetium 99m Myoview intravenously under resting conditions. Resting myocardial perfusion scan was done. Subsequently, the patient underwent Lexiscan stress test as per the protocol. During Lexiscan stress, the patient received 28 mCi of technetium 99m Myoview intravenously. After 30-60 minutes, post stress images were done. Computerized reconstruction images were performed for analysis. The post-stress images did not reveal any perfusion abnormality. Gated study did not reveal any wall motion abnormality. The left ventricular ejection fraction was normal and was calculated to be 65%. The resting images were also normal. CONCLUSION: 1. Normal resting and stress myocardial perfusion scan images after the patient underwent Lexiscan stress test. 2. No wall motion abnormality. 3. Normal left ventricular ejection fraction of 65%. JOB# [id number] [facility]
[2018-07-27] MEDS ORDERED: ALDACTONE PO SCH (10:00)
[2018-07-27] MEDS ORDERED: NORMODYNE PO SCH (10:00)
[2018-07-27] MEDS ORDERED: ZESTRIL PO SCH (10:00)
[2018-07-27] MEDS ORDERED: ECOTRIN PO SCH (10:00)
[2018-07-27] MEDS ORDERED: NON-FORMULARY (Lisinopril/Hydrochlorothiazide [Zestoretic 20-25 Mg] 1 TAB) PO SCH (10:00)
[2018-07-27] MEDS ORDERED: NON-FORMULARY (Spironolactone 25 MG) PO SCH (10:00)
[2018-07-27] MEDS ORDERED: HCTZ PO SCH (10:00)
[2018-07-27] MEDS ORDERED: LABETALOL HCL 200 MG PO SCH (10:00)
[2018-07-27] MEDS ORDERED: TENORMIN PO SCH (10:00)
[2018-07-27] MEDS ORDERED: PLAVIX PO SCH (10:00)
== END 2018-07-26 15:40 | disposition home or self-care (01) | DRG 305 ==
LOC: ED 16:23 → 4A 23:04
PROVIDERS: ADMIT Internal Medicine; ATTEND Hospitalist
DX: I16.9 Hypertensive crisis, unspecified (principal); R07.9 Chest pain, unspecified; I10 Essential (primary) hypertension; G43.909 Migraine, unspecified, not intractable, without status migrainosus; E87.6 Hypokalemia; F17.210 Nicotine dependence, cigarettes, uncomplicated; Z86.73 Personal history of transient ischemic attack (TIA), and cerebral infarction without residual deficits; Z79.899 Other long term (current) drug therapy; Z88.8 Allergy status to other drugs, medicaments and biological substances; Z90.49 Acquired absence of other specified parts of digestive tract; Z98.51 Tubal ligation status; Z82.49 Family history of ischemic heart disease and other diseases of the circulatory system; Z88.1 Allergy status to other antibiotic agents; Z71.6 Tobacco abuse counseling
CPT/HCPCS: 36415; 71275; 74174; 78452; 80048; 82550; 82553; 83690; 84484; 85025; 85379; 85610; 85730; 87116; 93005; 93010; 93017; 96372; 96374; 96375; 99406; G0378; A9502; J0360; J1644; J2270; J2405; J2785; Q9967

== ENCOUNTER 2018-11-14 01:54 | Emergency (ER) | payer OTHER ==
[2018-11-14] MEDS ORDERED: ASPIRIN PO ONE (02:01)
--- NOTE | 2018-11-14 02:32 | XRay Report ---
PROCEDURE: XR CHEST 1V AP TECHNIQUE: Chest radiograph single view. HISTORY: Chest Pain COMPARISONS: 10/12/2017 . FINDINGS: Heart: Normal. Mediastinum/Vessels: Normal. Lungs/Pleural space: Normal. Bony thorax: No acute osseous abnormality. Life support devices: None. IMPRESSION: No acute cardiopulmonary abnormality. This document is electronically signed by Jay Jay Bocanegra MD., Nov 14 2018 02:30:58 AM ET
[2018-11-14 02:35] LABS: Basophils % (Auto) 0.3 % (0.0-1.8); Eosinophils # (Auto) 0.3 K/mm3 (0.0-0.4); Eosinophils % (Auto) 3.9 % (0.0-4.3); Hematocrit 35.5 % (30.3-42.9); Hemoglobin 11.8 gm/dl (10.1-14.3); Lymphocytes # (Auto) 3.4 K/mm3 (1.2-5.4); Lymphocytes % (Auto) 42.5 % (13.4-35.0); Mean Corpuscular HGB Conc 33 % (30-34); Mean Corpuscular Volume 91 fl (79-97); Monocytes # (Auto) 0.7 K/mm3 (0.0-0.8); Monocytes % (Auto) 8.9 % (0.0-7.3); Platelet Count 287 K/mm3 (140-440); Red Cell Distribution Width 15.6 % (13.2-15.2)
[2018-11-14 02:48] LABS: BUN/Creatinine Ratio 17; Blood Urea Nitrogen 10 mg/dL (7-17); Calcium 9.3 mg/dL (8.4-10.2); Hemolysis Index 6
[2018-11-14] MEDS ORDERED: NITROSTAT SL ONE (03:09)
[2018-11-14] MEDS ORDERED: ZOFRAN IV ONE (03:13)
--- NOTE | 2018-11-14 03:14 | Emergency Department Report ---
ED Chest Pain HPI - General Chief Complaint: Chest Pain Stated Complaint: NAUSEA & CHEST PAIN Time Seen by Provider: 11/14/18 03:04 Source: patient Mode of arrival: Wheelchair Limitations: No Limitations - History of Present Illness Initial Comments: Patient is a 53-year-old female with history of hypertension and CVA. Patient presented to the ER complaining of substernal chest pain started yesterday with radiation to the right upper extremity and neck. Patient stated that she stopped at one of the hospital in [place], she was admitted overnight and she was told that all this came back negative. She stated that she was given nitroglycerin and that helped a lot with her pain. Patient stated that the pain restarted again this evening. MD Complaint: chest pain -: Last night Onset: during rest Pain Location: substernal Pain Radiation: RUE Severity: moderate Severity scale (0 -10): 6 Quality: tightness Consistency: intermittent - Related Data Previous Rx's Medication Instructions Recorded Last Taken Type Acetaminophen/Codeine [Tylenol 1 tab PO Q8HR PRN #12 tablet 07/26/18 Unknown Rx /Codeine # 3 tab] Aspirin EC 325 mg PO QDAY #30 tablet 07/26/18 Unknown Rx Atenolol [Tenormin] 25 mg PO DAILY #30 tablet 07/26/18 Unknown Rx AtorvaSTATin [Lipitor] 40 mg PO QHS #30 tablet 07/26/18 Unknown Rx Clopidogrel Bisulfate [Plavix] 75 mg PO DAILY #30 tablet 07/26/18 Unknown Rx Labetalol HCl 200 mg PO QDAY #30 07/26/18 Unknown Rx Lisinopril/Hydrochlorothiazide 1 tab PO QDAY #30 tab 07/26/18 Unknown Rx [Zestoretic 20-25 mg] Spironolactone 25 mg PO QDAY #30 07/26/18 Unknown Rx busPIRone 10 mg PO BID #60 07/26/18 Unknown Rx tiZANidine [Zanaflex 4mg TAB] 4 mg PO BID PRN #10 tablet 07/26/18 Unknown Rx Allergies Allergy/AdvReac Type Severity Reaction Status Date / Time clarithromycin [From Biaxin] Allergy Swelling Verified 05/14/13 10:06 metoclopramide [From Reglan] Allergy Unknown Verified 11/14/18 02:02 prochlorperazine edisylate Allergy Itching Verified 05/14/13 10:06 [From Compazine] prochlorperazine maleate Allergy Itching Verified 05/14/13 10:06 [From Compazine] Heart Score - HEART Score History: Moderately suspicious EKG: Non-specific Age: 45-65 Risk factors: 1-2 risk factors Troponin: < normal limit HEART Score: 4 - Critical Actions Critical Actions: 4-6 pts:12-16.6% risk of adverse cardiac event. Should be admitted ED Review of Systems ROS: Stated complaint: NAUSEA & CHEST PAIN Other details as noted in HPI Comment: All other systems reviewed and negative Constitutional: denies: chills, fever ENT: denies: throat pain Respiratory: denies: shortness of breath, SOB with exertion Cardiovascular: chest pain. denies: palpitations Gastrointestinal: nausea, vomiting. denies: abdominal pain Musculoskeletal: denies: back pain Neurological: denies: headache, weakness ED Past Medical Hx - Past Medical History Previous Medical History?: Yes Hx Hypertension: Yes Hx CVA: Yes Hx Congestive Heart Failure: No Hx Diabetes: No Hx Arthritis: No Hx Headaches / Migraines: Yes Hx Asthma: No Hx COPD: No Additional medical history: Degenerative disk, crushed vertebra - Surgical History Past Surgical History?: Yes Hx Appendectomy: Yes Additional Surgical History: tubligation. stent to left leg - Social History Smoking Status: Never Smoker Substance Use Type: None - Medications Home Medications: Home Medications Medication Instructions Recorded Confirmed Last Taken Type Acetaminophen/Codeine [Tylenol 1 tab PO Q8HR PRN #12 tablet 07/26/18 Unknown Rx /Codeine # 3 tab] Aspirin EC 325 mg PO QDAY #30 tablet 07/26/18 Unknown Rx Atenolol [Tenormin] 25 mg PO DAILY #30 tablet 07/26/18 Unknown Rx AtorvaSTATin [Lipitor] 40 mg PO QHS #30 tablet 07/26/18 Unknown Rx Clopidogrel Bisulfate [Plavix] 75 mg PO DAILY #30 tablet 07/26/18 Unknown Rx Labetalol HCl 200 mg PO QDAY #30 07/26/18 Unknown Rx Lisinopril/Hydrochlorothiazide 1 tab PO QDAY #30 tab 07/26/18 Unknown Rx [Zestoretic 20-25 mg] Spironolactone 25 mg PO QDAY #30 07/26/18 Unknown Rx busPIRone 10 mg PO BID #60 07/26/18 Unknown Rx tiZANidine [Zanaflex 4mg TAB] 4 mg PO BID PRN #10 tablet 07/26/18 Unknown Rx ED Physical Exam - General Limitations: No Limitations General appearance: alert, in no apparent distress - Head Head exam: Present: atraumatic, normocephalic, normal inspection - Eye Eye exam: Present: normal appearance, PERRL - ENT ENT exam: Present: normal exam, normal orophraynx, mucous membranes moist - Neck Neck exam: Present: normal inspection, full ROM. Absent: tenderness, meningismus, lymphadenopathy, thyromegaly - Respiratory Respiratory exam: Present: normal lung sounds bilaterally - Cardiovascular Cardiovascular Exam: Present: regular rate, normal rhythm, normal heart sounds - GI/Abdominal GI/Abdominal exam: Present: soft, normal bowel sounds. Absent: distended, tenderness, guarding, rebound, rigid, organomegaly, mass, bruit, pulsatile mass, hernia - Extremities Exam Extremities exam: Present: normal inspection, full ROM, normal capillary refill - Back Exam Back exam: Present: normal inspection, full ROM - Neurological Exam Neurological exam: Present: alert, oriented X3, CN II-XII intact, normal gait, reflexes normal - Skin Skin exam: Present: warm, intact, normal color ED Course Vital Signs 11/14/18 11/14/18 11/14/18 01:56 03:25 03:26 Temperature 97.8 F Pulse Rate 71 62 62 Respiratory 18 16 Rate Blood Pressure 193/100 179/80 Blood Pressure 179/80 [Right] O2 Sat by Pulse 100 98 Oximetry 11/14/18 04:25 Temperature Pulse Rate 62 Respiratory 16 Rate Blood Pressure Blood Pressure 162/77 [Right] O2 Sat by Pulse 97 Oximetry ELISA score - Elisa Score Age > 65: (0) No Aspirin use within the Past 7 Days: (0) No 3 or more CAD Risk Factors: (1) Yes 2 or more Angina events in past 24 hrs: (0) No Known CAD with more than 50% Stenosis: (0) No Elevated Cardiac Markers: (0) No ST Deviation Greater than 0.5mm: (0) No ELISA Score: 1 ED Medical Decision Making - Lab Data Result diagrams: 11/14/18 02:25 11/14/18 02:25 - EKG Data -: EKG Interpreted by Me EKG shows normal: sinus rhythm Rate: normal - EKG Data Interpretation: no acute changes - Radiology Data Radiology results: report reviewed Chest CTA is negative for pulmonary embolism. - Medical Decision Making .Patient is a 53-year-old female with history of hypertension and CVA. Patient presented to the ER complaining of substernal chest pain started yesterday with radiation to the right upper extremity and neck. Patient stated that she stopped at one of the hospital in [place], she was admitted overnight and she was told that all this came back negative. She stated that she was given nitroglycerin and that helped a lot with her pain. Patient stated that the pain restarted again this evening. EKG with no ST elevation. 2 sets of troponin is negative. CTA chest is ne gative for pulmonary embolism. Patient is chest pain-free. I advised the patient to follow-up with her primary care physician for further management of her chest pain she include but not limited to stress this and a referral to dispute resolution specialist. Patient and her daughter understood this instruction very well. I also advised to return to the ER if symptoms retained. Critical care attestation.: If time is entered above; I have spent that time in minutes in the direct care of this critically ill patient, excluding procedure time. ED Disposition Clinical Impression: Chest pain Disposition: DC-01 TO HOME OR SELFCARE Is pt being admited?: No Condition: Stable Instructions: Chest Pain (ED) Referrals: TARAN LILLY MD [Primary Care Provider] - 3-5 Days
[2018-11-14 03:50] LABS: INR 0.95 (0.87-1.13)
[2018-11-14 03:51] LABS: Partial Thromboplastin Time 28.1 Sec. (24.2-36.6)
[2018-11-14 04:26] VITALS: BP 162/77
--- NOTE | 2018-11-14 05:28 | Cat Scan Report ---
PROCEDURE: CT ANGIO CHEST TECHNIQUE: Computerized tomographic angiography of the chest was performed after the IV injection of iodinated nonionic contrast including image processing. The image data was postprocessed using 2-di mensional multiplanar reformatted (MPR) and 3-dimensional (MIP and/or volume rendered) techniques. Au tomated exposure control, adjustment of mA and/or kV according to patient size, or iterative reconstr uction dose optimization techniques were utilized. HISTORY: CHEST PAIN COMPARISONS: July 25, 2018. FINDINGS: Normal caliber main pulmonary artery. Well opacified pulmonary arterial tree. No pulmonary embolism . Mild cardiomegaly. Hypoenhancement at the left ventricular apex seen on axial series 2, images 57-6 2. No pericardial effusion. Thoracic aorta is normal in course and caliber. No wall irregularity, periaortic fluid or stranding. No pneumothorax, effusion or focal airspace disease. The central airways are patent. No bronchiectasi s. Imaged portion of the upper abdomen is unremarkable. The superficial soft tissues are unremarkable. No acute bony abnormality or worrisome osseous lesions identified. IMPRESSION: No pulmonary embolism or other findings of acute aortic syndrome. Myocardial hypoenhancement at the l eft ventricular apex may be due to acute or chronic infarct. Correlation with history and serum tropo scott level is requested. This document is electronically signed by Avila Uriarte MD., Nov 14 2018 05:26:00 AM ET
== END 2018-11-14 06:15 | disposition home or self-care (01) ==
LOC: ED 01:54
DX: R07.89 Other chest pain (principal); I10 Essential (primary) hypertension; G43.909 Migraine, unspecified, not intractable, without status migrainosus; Z86.73 Personal history of transient ischemic attack (TIA), and cerebral infarction without residual deficits; Z98.51 Tubal ligation status; Z90.89 Acquired absence of other organs; Z88.1 Allergy status to other antibiotic agents; Z88.8 Allergy status to other drugs, medicaments and biological substances
CPT/HCPCS: 36415; 71045; 71275; 80048; 83690; 84484; 85025; 85379; 85610; 85730; 93005; 93010; 96374; 99285; J2405; Q9967